=== PATIENT | female | born 1985 | race Caucasian/White ===

== ENCOUNTER 2019-07-29 04:30 | Inpatient (IN) ==
[2019-07-29] MEDS ORDERED: OXYTOCIN 30 UNITS/500 ML BAG IV PRN ×2 (07:04→16:51)
[2019-07-29 07:29] LABS: Hematocrit (blood only) 35.9 % (37-47); Hemoglobin 12.3 g/dL (12.0-16.0); Mean Corpuscular Hemoglobin 30.1 pg (25-34); Mean Platelet Volume 11.3 fL (7.4-10.4); Platelet Count 185 K/uL (130-400); RDW Coefficient of Variation 13.4 % (11.5-14.5); RDW Standard Deviation 43.1 fL (36.4-46.3); Red Blood Count 4.08 M/uL (4.2-5.4)
[2019-07-29] MEDS ORDERED: PENICILLIN G POTASSIUM 6 MU in DEXTROSE 5% 250 ML IV STA (07:31)
[2019-07-29 07:32] LABS: Mean Corpuscular Hgb Conc 34.3 g/dL (32-36)
[2019-07-29] MEDS: LACTATED RINGER'S 1,000 ML IV PRN ×3 (08:02→16:18)
--- NOTE | 2019-07-29 08:45 | Obstetrical Progress Note ---
Date of Service July 29, 2019 Subjective Admit Note Physical Exam Physical Exam: 34 F P0000 at 40.4 weeks seen in LR&D in early labor. GBS is positive. FHT Cat 1. Cervix 4-5/90/-2/vertex by RN. Will admit and start antibiotics. Anticipate normal delivery. Results & Data Vital Signs (Past 12 Hours) Vital Signs Temp Pulse Resp BP 07/29/19 07:26 76 130/74 07/29/19 06:58 37.0 C 72 18 154/84 H 07/29/19 04:55 37.1 C 82 18 142/87 H 07/29/19 04:42 37.1 C 82 18 142/87 H
--- NOTE | 2019-07-29 11:30 | Obstetrical Progress Note ---
Date of Service July 29, 2019 Physical Exam Genitourinary: OB Exam Abdomen: + regular contractions Manual OB Exam: + cervical dilation 7 cm and 8 cm, + cervical effacement 100%, + station -1 and + amniotic fluid meconium OB Exam Monitor Tracing: + category I SROM with meconium stained fluid Results & Data Vital Signs (Past 12 Hours) Vital Signs Temp Pulse Resp BP 07/29/19 10:44 36.6 C 72 20 143/72 H 07/29/19 07:26 76 130/74 07/29/19 06:58 37.0 C 72 18 154/84 H 07/29/19 04:55 37.1 C 82 18 142/87 H 07/29/19 04:42 37.1 C 82 18 142/87 H
[2019-07-29] MEDS: PENICILLIN G POTASSIUM 3 MU in DEXTROSE 5% 100 ML IV PRN ×3 (11:42→19:40)
[2019-07-29] MEDS ORDERED: BUPIVACAINE 0.25% 30 ML VIAL ONE (14:09)
[2019-07-29] MEDS ORDERED: ePHEDrine sulfate 50 MG/ML AMP ONE (14:09)
[2019-07-29] MEDS ORDERED: fentaNYL 2MCG/ML ROPIV 1.25MG/ML 100 ML BAG EPI ONE (14:10)
[2019-07-29] MEDS ORDERED: fentaNYL citrate 100 MCG/2 ML VIAL ONE (14:10)
--- NOTE | 2019-07-29 14:41 | Anesthesiology Consultation ---
Date of Service July 29, 2019 Assessment & Plan Chart Review Chart Review: Acceptable Risk for Surgery, Patient NOT seen in Pre Admission Testing and Acceptable Risk for Labor Epidural Consults Requested none ASA ASA2 Proposed Anesthesia Anesthesia Type: General and Labor Epidural Risk / Benefits Reviewed With: PT / POA / Parent / Guardian, Accepts Plan and Informed Consent Obtained History Height/Weight Height: 5 ft 5 in Weight: 91.172 kg Allergies Allergy/AdvReac Type Severity Reaction Status Date / Time No Known Allergies Allergy Verified 07/29/19 04:52 Medications Home Medications Medication Instructions Recorded Confirmed Last Taken PNV cmb#95-ferrous fumarate-FA 1 tab PO DAILY 07/29/19 07/29/19 07/28/19 08:00 [] aspirin [Aspir-81] 81 mg PO DAILY 07/29/19 07/29/19 07/27/19 Active Medications Generic Name Dose Route Start Last Admin Trade Name Freq PRN Reason Stop Dose Admin Lactated Ringer's 1,000 mls @ 125 mls/hr 07/29/19 07:04 07/29/19 14:15 Lr IV 07/31/19 07:03 999 mls/hr .Q8H PRN Infusion L&D Protocol Protocol Penicillin G Potassium 3 mu/ 106 mls @ 100 mls/hr 07/29/19 07:04 07/29/19 12:46 Dextrose IV 08/08/19 07:03 Infused Q4H PRN Infusion Give until delivery NPO Date Last Intake of Fluids: 07/29/19 Time Last Intake of Fluids: 08:00 Date Last Intake of Solids: 07/28/19 Time Last Intake of Solids: 20:00 Past Medical History Medical History Anemia GERD (gastroesophageal reflux disease) Obese Jadwin teeth extracted 2002 Exercise / Class Metabolic Activity II 4-5 Yardwork/Stairs/Walk up hill Past Family History Family History Grandmother (Paternal) Cancer Grandmother (Maternal) Cancer Grandfather (Maternal) Heart disease Past Surgical History Surgical History H/O LEEP 2010 Past Anesthesia History No Hx of Anesthesia Complications and No Family Hx of Anesthesia Complications History of PONV No Hx of PONV and No Hx of Motion Sickness Social History Smoking Status: Former smoker Hx Alcohol Use: No Hx Substance Use: No Physical Exam Vital Signs Last Vital Signs Temp 36.8 C 07/29/19 13:03 Pulse 60 07/29/19 14:38 Resp 20 07/29/19 13:03 BP 144/77 H 07/29/19 14:37 Pulse Ox 99 07/29/19 14:38 Constitutional + obese ENMT Mouth: no dentition abnormality Thyromental Distance: > or= 3.5 Finger Breadths Mallampati Class: II Neck normal visual inspection and trachea midline; neck extension not limited Respiratory normal respiratory effort Auscultation: lungs clear to auscultation bilaterally Cardiovascular Rate/Rhythm: regular rate and regular rhythm Heart Sounds: no murmur Musculoskeletal Spine: lumbar spine normal to inspection; normal cervical ROM Neurologic moves all extremities Motor/Sensory: no sensory deficit Psychiatric Orientation: alert and oriented x 3 Testing Laboratory Results 07/29/19 07:19
[2019-07-29] MEDS ORDERED: DiphenhydrAMINE HCL 50 MG/ML VIAL IV PRN (15:07)
[2019-07-29] MEDS ORDERED: NALOXONE HCL 0.4 MG/1 ML VIAL/CARP IV PRN (15:07)
[2019-07-29] MEDS ORDERED: NALBUPHINE HCL INJ 10 MG/ML AMP IV PRN (15:07)
[2019-07-29] MEDS ORDERED: ONDANSETRON INJ 2 MG/ML 2 ML VIAL IV PRN (15:07)
[2019-07-29] MEDS ORDERED: NALOXONE HCL 1 MG in SODIUM CHLORIDE 0.9% 1000ML 1,000 ML IV PRN (15:07)
[2019-07-29] MEDS ORDERED: fentaNYL 2MCG/ML ROPIV 1.25MG/ML 100 ML BAG EPI PRN (15:07)
[2019-07-29] MEDS ORDERED: ePHEDrine sulfate 50 MG/ML AMP IV PRN (15:07)
[2019-07-29] MEDS ORDERED: PROMETHAZINE HCL 25 MG in SODIUM CHLORIDE 0.9% 50 ML IV PRN (15:07)
--- NOTE | 2019-07-29 16:54 | Obstetrical Progress Note ---
Date of Service July 29, 2019 Physical Exam Constitutional: WD/WN, vitals as above Genitourinary: Manual OB Exam: + cervical dilation 8 cm, + cervical effacement, + station 0 and + amniotic fluid clear OB Exam Monitor Tracing: + external FHT monitor used, + external uterine monitor used, + category I and + normal FHT variability Exam by nurse and no cervical change will start oxytocin to augment contractions Results & Data Vital Signs (Past 12 Hours) Vital Signs Temp Pulse Resp BP Pulse Ox 07/29/19 16:48 74 134/80 98 07/29/19 16:43 74 99 07/29/19 16:38 61 98 07/29/19 16:35 82 113/70 07/29/19 16:33 75 98 07/29/19 16:28 92 H 98 07/29/19 16:23 60 98 07/29/19 16:20 61 129/72 07/29/19 16:18 70 99 07/29/19 16:13 71 98 07/29/19 16:08 72 99 07/29/19 16:03 85 115/74 98 07/29/19 15:58 85 98 07/29/19 15:53 89 99 07/29/19 15:48 84 18 116/67 97 07/29/19 15:43 76 98 07/29/19 15:40 111/61 07/29/19 15:38 68 116/63 98 07/29/19 15:36 55 L 113/62 07/29/19 15:34 61 122/64 07/29/19 15:33 77 99 07/29/19 15:32 49 L 18 109/64 07/29/19 15:30 65 118/64 07/29/19 15:28 64 118/60 98 07/29/19 15:26 67 18 115/55 L 07/29/19 15:24 65 118/61 07/29/19 15:23 68 99 07/29/19 15:22 71 124/65 07/29/19 15:20 77 130/69 07/29/19 15:18 73 118/64 98 07/29/19 15:16 68 18 116/58 L 07/29/19 15:14 68 18 123/56 L 07/29/19 15:13 75 98 07/29/19 15:12 96 H 18 119/56 L 07/29/19 15:10 69 18 119/65 07/29/19 15:08 71 18 117/64 99 07/29/19 15:06 72 18 113/57 L 07/29/19 15:04 18 122/56 L 07/29/19 15:03 63 98 07/29/19 15:02 37.0 C 56 L 18 111/57 L 07/29/19 15:00 60 18 138/65 07/29/19 14:58 81 18 114/69 97 07/29/19 14:56 63 142/75 H 07/29/19 14:53 72 98 07/29/19 14:48 72 98 07/29/19 14:43 76 97 07/29/19 14:38 60 99 07/29/19 14:37 63 16 144/77 H 07/29/19 14:33 68 98 07/29/19 14:28 73 97 07/29/19 14:25 80 91 07/29/19 14:23 75 99 07/29/19 14:18 62 98 07/29/19 13:03 36.8 C 57 L 20 131/74 07/29/19 10:44 36.6 C 72 20 143/72 H 07/29/19 07:26 76 130/74 07/29/19 06:58 37.0 C 72 18 154/84 H 07/29/19 04:55 37.1 C 82 18 142/87 H
[2019-07-29] MEDS ORDERED: Nursing to Pharmacy Communication ONE (20:07)
--- NOTE | 2019-07-29 20:33 | Obstetrical Progress Note ---
Date of Service July 29, 2019 Physical Exam Genitourinary: Manual OB Exam: + cervical dilation 10 cm, + cervical effacement 100% and + station + 1 OB Exam Monitor Tracing: + external FHT monitor used, + external uterine monitor used and + category I patient will start to push Results & Data Vital Signs (Past 12 Hours) Vital Signs Temp Pulse Resp BP Pulse Ox 07/29/19 20:28 71 96 07/29/19 20:23 73 98 07/29/19 20:19 68 143/64 H 07/29/19 20:18 70 97 07/29/19 20:13 70 97 07/29/19 20:08 70 96 07/29/19 20:03 74 114/56 L 97 07/29/19 19:58 71 96 07/29/19 19:53 69 96 07/29/19 19:48 102 H 97 07/29/19 19:43 89 98 07/29/19 19:38 67 97 07/29/19 19:34 68 144/72 H 07/29/19 19:33 74 99 07/29/19 19:28 70 96 07/29/19 19:23 70 97 07/29/19 19:19 67 134/73 07/29/19 19:18 71 99 07/29/19 19:13 75 98 07/29/19 19:08 70 98 07/29/19 19:03 37.2 C 80 18 130/67 98 07/29/19 18:58 71 98 07/29/19 18:53 70 97 07/29/19 18:48 69 122/64 97 07/29/19 18:43 68 98 07/29/19 18:38 67 98 07/29/19 18:34 67 122/61 07/29/19 18:33 67 98 07/29/19 18:28 72 97 07/29/19 18:23 68 98 07/29/19 18:18 73 136/60 98 07/29/19 18:13 84 97 07/29/19 18:08 65 98 07/29/19 18:03 86 127/75 98 07/29/19 17:58 63 97 07/29/19 17:53 83 97 07/29/19 17:50 76 20 126/67 07/29/19 17:48 83 98 09/15/19 17:43 65 96 07/29/19 17:38 62 97 07/29/19 17:34 65 20 136/75 07/29/19 17:33 62 98 07/29/19 17:28 68 98 07/29/19 17:23 64 98 07/29/19 17:20 63 150/78 H 07/29/19 17:18 96 H 98 07/29/19 17:13 65 97 07/29/19 17:08 86 98 07/29/19 17:05 37.2 C 18 07/29/19 17:03 84 20 133/73 98 07/29/19 16:58 76 98 07/29/19 16:53 64 98 07/29/19 16:48 74 134/80 98 07/29/19 16:43 74 99 07/29/19 16:38 61 98 07/29/19 16:35 82 18 113/70 07/29/19 16:33 75 98 07/29/19 16:28 92 H 98 07/29/19 16:23 60 98 07/29/19 16:20 61 129/72 07/29/19 16:18 70 99 07/29/19 16:13 71 98 07/29/19 16:08 72 99 07/29/19 16:03 85 115/74 98 07/29/19 15:58 85 98 07/29/19 15:53 89 99 07/29/19 15:48 84 18 116/67 97 07/29/19 15:43 76 98 07/29/19 15:40 111/61 07/29/19 15:38 68 116/63 98 07/29/19 15:36 55 L 113/62 07/29/19 15:34 61 122/64 07/29/19 15:33 77 99 07/29/19 15:32 49 L 18 109/64 07/29/19 15:30 65 118/64 07/29/19 15:28 64 118/60 98 07/29/19 15:26 67 18 115/55 L 07/29/19 15:24 65 118/61 07/29/19 15:23 68 99 07/29/19 15:22 71 124/65 07/29/19 15:20 77 130/69 07/29/19 15:18 73 118/64 98 07/29/19 15:16 68 18 116/58 L 07/29/19 15:14 68 18 123/56 L 07/29/19 15:13 75 98 07/29/19 15:12 96 H 18 119/56 L 07/29/19 15:10 69 18 119/65 07/29/19 15:08 71 18 117/64 99 07/29/19 15:06 72 18 113/57 L 07/29/19 15:04 18 122/56 L 07/29/19 15:03 63 98 07/29/19 15:02 37.0 C 56 L 18 111/57 L 07/29/19 15:00 60 18 138/65 07/29/19 14:58 81 18 114/69 97 07/29/19 14:56 63 142/75 H 07/29/19 14:53 72 98 07/29/19 14:48 72 98 07/29/19 14:43 76 97 07/29/19 14:38 60 99 07/29/19 14:37 63 16 144/77 H 07/29/19 14:33 68 98 07/29/19 14:28 73 97 07/29/19 14:25 80 91 07/29/19 14:23 75 99 07/29/19 14:18 62 98 07/29/19 13:03 36.8 C 57 L 20 131/74 07/29/19 10:44 36.6 C 72 20 143/72 H
[2019-07-29] MEDS ORDERED: IBUPROFEN 600 MG TAB PO ONE (22:46)
--- NOTE | 2019-07-29 22:51 | Delivery Summary ---
Vaginal Delivery Summary Date of Service July 29, 2019 Vaginal Delivery Summary Delivery Note live male over intact perineum ELISE with delayed cord clamping. Apgars 8/9 weight pending. Cord blood obtained followed by spontaneous delivery of intact placenta. Small first degree vaginal tear repaired with one 3/0 Vicryl stitch. EBL 250 ml. Final sponge needle and instrument count are correct. Mom and baby stable.
[2019-07-30] MEDS ORDERED: SUPERCREAM 0.870% 15 GM JAR EXT PRN (00:22)
[2019-07-30] MEDS ORDERED: DIPHTHERIA/TETANUS/PERTUSSIS 0.5 ML SYR/VIAL IM ONE (00:22)
[2019-07-30] MEDS ORDERED: BISACODYL 10 MG SUPP PR PRN (00:22)
[2019-07-30] MEDS ORDERED: BENZOCAINE 20% AER SPR 82.5 GM CAN EXT PRN (00:22)
[2019-07-30] MEDS ORDERED: OXYTOCIN 30 UNITS/500 ML BAG IV PRN (00:22)
[2019-07-30] MEDS ORDERED: HYDROCORTISONE ACETATE 25 MG SUPP PR PRN (00:22)
[2019-07-30] MEDS: ACETAMINOPHEN 325 MG TAB PO PRN ×4 (01:41→21:11)
[2019-07-30] MEDS: IBUPROFEN 600 MG TAB PO PRN ×4 (05:17→23:32)
[2019-07-30 07:00] LABS: Hematocrit (blood only) 33.7 % (37-47); Hemoglobin 11.3 g/dL (12.0-16.0); Mean Corpuscular Hemoglobin 30.1 pg (25-34); Mean Corpuscular Hgb Conc 33.5 g/dL (32-36); Mean Corpuscular Volume 89.9 fL (80-100); Mean Platelet Volume 11.5 fL (7.4-10.4); Platelet Count 186 K/uL (130-400); RDW Coefficient of Variation 13.8 % (11.5-14.5); RDW Standard Deviation 45.4 fL (36.4-46.3); Red Blood Count 3.75 M/uL (4.2-5.4)
[2019-07-30 07:03] LABS: White Blood Count 30.69 K/uL (4.8-10.8)
[2019-07-30] MEDS: PRENATAL VITAMIN 1 TAB PO SCH (07:41)
[2019-07-30] MEDS: DOCUSATE SODIUM 100 MG CAP PO SCH ×2 (07:42→21:05)
--- NOTE | 2019-07-30 08:40 | Obstetrical Progress Note ---
Date of Service July 30, 2019 Subjective Patient is seen and examined. She feels well, no complaints. Ambulating without dizziness Voiding without difficulty Tolerating regular diet with out N&V Bleeding is minimal No fever/ chills/ CP/ SOB/ N&V/ Leg pain Breast feeding without problems Vital Signs Temp Pulse Pulse Resp BP BP Pulse Ox 07/30/19 07:19 36.4 C L 85 17 127/78 85 L 07/30/19 04:20 36.9 C 18 135/70 07/30/19 01:32 37.2 C 20 134/76 07/30/19 00:35 18 07/30/19 00:33 82 121/65 07/30/19 00:18 78 140/58 L 07/30/19 00:05 18 07/30/19 00:03 83 124/61 07/29/19 23:48 85 123/65 07/29/19 23:35 18 07/29/19 23:33 89 126/65 07/29/19 23:20 18 07/29/19 23:18 94 H 125/65 07/29/19 23:14 93 H 94 07/29/19 23:13 99 H 94 07/29/19 23:09 89 96 07/29/19 23:05 18 07/29/19 23:04 93 H 95 07/29/19 23:03 90 119/60 07/29/19 22:59 92 H 96 07/29/19 22:54 92 H 96 07/29/19 22:50 37.2 C 18 07/29/19 22:49 91 H 97 07/29/19 22:48 97 H 128/68 07/29/19 22:44 103 H 95 07/29/19 22:39 105 H 96 07/29/19 22:38 101 H 129/69 07/29/19 22:35 18 07/29/19 22:34 101 H 94 07/29/19 22:33 102 H 18 124/64 07/29/19 22:29 109 H 95 07/29/19 22:28 109 H 93 07/29/19 22:24 126 H 95 07/29/19 22:21 121 H 114/66 07/29/19 22:19 121 H 95 07/29/19 22:17 154 H 93 07/29/19 22:14 144 H 95 07/29/19 22:11 145 H 94 07/29/19 22:09 122 H 95 07/29/19 22:04 120 H 97 07/29/19 22:00 114 H 18 94 07/29/19 21:59 112 H 95 07/29/19 21:55 124 H 92 07/29/19 21:54 122 H 96 07/29/19 21:49 146 H 96 07/29/19 21:48 126 H 112/66 07/29/19 21:44 117 H 95 07/29/19 21:43 112 H 82 L 07/29/19 21:39 135 H 95 07/29/19 21:34 119 H 96 07/29/19 21:33 117 H 136/69 07/29/19 21:31 126 H 18 93 07/29/19 21:29 124 H 96 07/29/19 21:24 139 H 95 07/29/19 21:19 143 H 96 07/29/19 21:18 136 H 120/57 L 07/29/19 21:14 150 H 96 07/29/19 21:13 126 H 94 07/29/19 21:09 150 H 97 07/29/19 21:08 149 H 93 07/29/19 21:04 139 H 97 07/29/19 21:03 117 H 18 127/57 L 07/29/19 20:59 120 H 97 07/29/19 20:54 149 H 99 07/29/19 20:50 37.1 C 07/29/19 20:49 111 H 136/65 99 07/29/19 20:44 112 H 94 07/29/19 20:40 97 H 89 L 07/29/19 20:39 110 H 98 07/29/19 20:33 120 H 18 97 07/29/19 20:28 71 96 07/29/19 20:23 73 98 07/29/19 20:19 68 143/64 H 07/29/19 20:18 70 97 07/29/19 20:13 70 97 07/29/19 20:08 70 96 07/29/19 20:03 74 18 114/56 L 97 07/29/19 19:58 71 96 07/29/19 19:53 69 96 07/29/19 19:48 102 H 97 07/29/19 19:43 89 98 07/29/19 19:38 67 97 15 19:34 68 18 144/72 H 07/29/19 19:33 74 99 15 19:28 70 96 15 19:23 70 97 15/ 19:19 67 134/73 07/29/19 19:18 71 99 07/29/19 19:13 75 98 07/29/19 19:08 70 98 07/29/19 19:03 37.2 C 80 18 130/67 98 07/29/19 18:58 71 98 07/29/19 18:53 70 97 07/29/19 18:48 69 122/64 97 07/29/19 18:43 68 98 07/29/19 18:38 67 98 07/29/19 18:34 67 122/61 07/29/19 18:33 67 98 07/29/19 18:28 72 97 07/29/19 18:23 68 98 07/29/19 18:18 73 136/60 98 07/29/19 18:13 84 97 07/29/19 18:08 65 98 07/29/19 18:03 86 127/75 98 15 17:58 63 97 07/29/19 17:53 83 97 07/29/19 17:50 76 20 126/67 07/29/19 17:48 83 98 07/29/19 17:43 65 96 07/29/19 17:38 62 97 07/29/19 17:34 65 20 136/75 07/29/19 17:33 62 98 07/29/19 17:28 68 98 07/29/19 17:23 64 98 1519 17:20 63 150/78 H 07/29/19 17:18 96 H 98 07/29/19 17:13 65 97 07/29/19 17:08 86 98 07/29/19 17:05 37.2 C 18 07/29/19 17:03 84 20 133/73 98 15/19 16:58 76 98 15 16:53 64 98 15/19 16:48 74 134/80 98 1519 16:43 74 99 19 16:38 61 98 1519 16:35 82 18 113/70 07/29/19 16:33 75 98 07/29/19 16:28 92 H 98 07/29/19 16:23 60 98 07/29/19 16:20 61 129/72 07/29/19 16:18 70 99 07/29/19 16:13 71 98 07/29/19 16:08 72 99 07/29/19 16:03 85 115/74 98 07/29/19 15:58 85 98 07/29/19 15:53 89 99 07/29/19 15:48 84 18 116/67 97 07/29/19 15:43 76 98 07/29/19 15:40 111/61 07/29/19 15:38 68 116/63 98 07/29/19 15:36 55 L 113/62 07/29/19 15:34 61 122/64 07/29/19 15:33 77 99 07/29/19 15:32 49 L 18 109/64 07/29/19 15:30 65 118/64 07/29/19 15:28 64 118/60 98 07/29/19 15:26 67 18 115/55 L 07/29/19 15:24 65 118/61 07/29/19 15:23 68 99 07/29/19 15:22 71 124/65 07/29/19 15:20 77 130/69 07/29/19 15:18 73 118/64 98 07/29/19 15:16 68 18 116/58 L 07/29/19 15:14 68 18 123/56 L 07/29/19 15:13 75 98 07/29/19 15:12 96 H 18 119/56 L 07/29/19 15:10 69 18 119/65 07/29/19 15:08 71 18 117/64 99 07/29/19 15:06 72 18 113/57 L 07/29/19 15:04 18 122/56 L 07/29/19 15:03 63 98 07/29/19 15:02 37.0 C 56 L 18 111/57 L 07/29/19 15:00 60 18 138/65 07/29/19 14:58 81 18 114/69 97 07/29/19 14:56 63 142/75 H 07/29/19 14:53 72 98 07/29/19 14:48 72 98 07/29/19 14:43 76 97 07/29/19 14:38 60 99 07/29/19 14:37 63 16 144/77 H 07/29/19 14:33 68 98 07/29/19 14:28 73 97 07/29/19 14:25 80 91 07/29/19 14:23 75 99 07/29/19 14:18 62 98 07/29/19 13:03 36.8 C 57 L 20 131/74 07/29/19 10:44 36.6 C 72 20 143/72 H Intake and Output 07/29/19 07/30/19 07/30/19 22:59 06:59 14:59 Intake Total 2039.817 / 4386.250 978.433 / 4386.250 Output Total 450 / 1000 400 / 1000 Balance 1589.817 / 3386.250 578.433 / 3386.250 Intake: IV 2039.817 / 4386.250 978.433 / 4386.250 Lr 1,000 ml @ 125 mls/hr IV . 1806.25 / 2806.250 Q8H PRN Rx#:[id number] PITOCIN 30 units In 500 ml @ 20 21.567 / 1000.000 978.433 / 1000.000 UNITS/HR 333.333 mls/hr IV . Q1H30M PRN Rx#:[id number] Pfizerpen 3 Mu In D5 100 ml @ 212 / 318 100 mls/hr IV Q4H PRN Rx#: [id number] Output: Urine 400 / 550 Urine Amount (Catheter) 450 / 450 Straight 450 / 450 Lab Results 07/29/19 07/30/19 Range/Units 07:19 06:28 WBC 16.10 H 30.69 H* D (4.8-10.8) K/uL RBC 4.08 L 3.75 L (4.2-5.4) M/uL Hgb 12.3 11.3 L (12.0-16.0) g/dL Hct 35.9 L 33.7 L (37-47) % MCV 88.0 89.9 (80-100) fL MCH 30.1 30.1 (25-34) pg MCHC 34.3 33.5 (32-36) g/dL RDW Std Deviation 43.1 45.4 (36.4-46.3) fL RDW Coeff of Samantha 13.4 13.8 (11.5-14.5) % Plt Count 185 186 (130-400) K/uL MPV 11.3 H 11.5 H (7.4-10.4) fL PE: General: Alert, orientedx3, NAD CVS S1S2 RRR Lungs: CTAB Abd: soft, NT, fundus firm, below Umbilicus Perineum intact, Lochia rubra minimal Ext; NT, no edema, Homans neg/ neg AP: 34 yo s/p , ppd# 1 VSS Afebrile doing well Elevated WBCC: 16 K on admission, 14K during Asymptomatic Had been afebrile during labor, no h/o prolonged ROM GBS + Plan to repeat labs Continue to monitor closely All questions were answered Results & Data Vital Signs (Past 12 Hours) Vital Signs Temp Pulse Pulse Resp BP BP Pulse Ox 07/30/19 07:19 36.4 C L 85 17 127/78 85 L 07/30/19 04:20 36.9 C 18 135/70 07/30/19 01:32 37.2 C 20 134/76 07/30/19 00:35 18 07/30/19 00:33 82 121/65 07/30/19 00:18 78 140/58 L 07/30/19 00:05 18 07/30/19 00:03 83 124/61 07/29/19 23:48 85 123/65 07/29/19 23:35 18 07/29/19 23:33 89 126/65 07/29/19 23:20 18 07/29/19 23:18 94 H 125/65 07/29/19 23:14 93 H 94 07/29/19 23:13 99 H 94 07/29/19 23:09 89 96 07/29/19 23:05 18 07/29/19 23:04 93 H 95 07/29/19 23:03 90 119/60 07/29/19 22:59 92 H 96 07/29/19 22:54 92 H 96 07/29/19 22:50 37.2 C 18 07/29/19 22:49 91 H 97 07/29/19 22:48 97 H 128/68 07/29/19 22:44 103 H 95 07/29/19 22:39 105 H 96 07/29/19 22:38 101 H 129/69 07/29/19 22:35 18 07/29/19 22:34 101 H 94 07/29/19 22:33 102 H 18 124/64 07/29/19 22:29 109 H 95 07/29/19 22:28 109 H 93 07/29/19 22:24 126 H 95 07/29/19 22:21 121 H 114/66 07/29/19 22:19 121 H 95 07/29/19 22:17 154 H 93 07/29/19 22:14 144 H 95 07/29/19 22:11 145 H 94 07/29/19 22:09 122 H 95 07/29/19 22:04 120 H 97 07/29/19 22:00 114 H 18 94 07/29/19 21:59 112 H 95 07/29/19 21:55 124 H 92 07/29/19 21:54 122 H 96 07/29/19 21:49 146 H 96 07/29/19 21:48 126 H 112/66 07/29/19 21:44 117 H 95 07/29/19 21:43 112 H 82 L 07/29/19 21:39 135 H 95 07/29/19 21:34 119 H 96 07/29/19 21:33 117 H 136/69 07/29/19 21:31 126 H 18 93 07/29/19 21:29 124 H 96 07/29/19 21:24 139 H 95 07/29/19 21:19 143 H 96 07/29/19 21:18 136 H 120/57 L 07/29/19 21:14 150 H 96 07/29/19 21:13 126 H 94 07/29/19 21:09 150 H 97 07/29/19 21:08 149 H 93 07/29/19 21:04 139 H 97 07/29/19 21:03 117 H 18 127/57 L 07/29/19 20:59 120 H 97 07/29/19 20:54 149 H 99 07/29/19 20:50 37.1 C 07/29/19 20:49 111 H 136/65 99 07/29/19 20:44 112 H 94 07/29/19 20:40 97 H 89 L 07/29/19 20:39 110 H 98
[2019-07-30] MEDS ORDERED: NON-FORMULARY MEDICATION (Pnv Cmb#95-Ferrous Fumarate-Fa [Prenatal] 1 TAB) PO SCH (09:00)
[2019-07-30 09:47] LABS: Hematocrit (blood only) 32.5 % (37-47); Hemoglobin 11.1 g/dL (12.0-16.0); Mean Corpuscular Hemoglobin 30.7 pg (25-34); Mean Corpuscular Volume 89.8 fL (80-100); Mean Platelet Volume 11.2 fL (7.4-10.4); Platelet Count 169 K/uL (130-400); RDW Coefficient of Variation 13.7 % (11.5-14.5); RDW Standard Deviation 44.8 fL (36.4-46.3); Red Blood Count 3.62 M/uL (4.2-5.4); White Blood Count 27.33 K/uL (4.8-10.8)
[2019-07-30 10:11] LABS: Mean Corpuscular Hgb Conc 34.2 g/dL (32-36)
[2019-07-30 10:28] LABS: Basophils # (auto) 0.02 K/uL (0-0.2); Basophils % (auto) 0.1 %; Immature Granulocytes # (auto) 0.13 K/uL (0.00-0.02); Immature Granulocytes % (auto) 0.5 %; Lymphocytes # (auto) 2.13 K/uL (1.2-3.4); Lymphocytes % (auto) 7.8 %; Monocytes # (auto) 1.89 K/uL (0.11-0.59); Monocytes % (auto) 6.9 %; Neutrophils # (auto) 23.16 K/uL (1.4-6.5); Neutrophils % (auto) 84.7 %
[2019-07-30] MEDS: CEFAZOLIN 2000MG 2,000 MG/15 ML SYR IV SCH ×2 (10:47→18:30)
[2019-07-30] MEDS: ASPIRIN 81 MG ECTAB PO SCH (10:52)
--- NOTE | 2019-07-30 17:54 | Obstetrical Progress Note ---
Date of Service July 30, 2019 Subjective Patient is seen She feels likes saw her earlier to pubic bone pain and difficulty with walking We discussed about pubic symphysis separation and management No abdominal pain No uterine tenderness Her baby is being transferred to [facility] N[facility] She likes to be discharged Given her WBCC elevated and started on IV Cefazolin I recommended her to stay overnight for at least 24 hour IV AB and repeat CBC/ WBCC in am She likes to think about it and decide Results & Data Vital Signs (Past 12 Hours) Vital Signs Temp Pulse Resp BP Pulse Ox 07/30/19 11:44 36.6 C 78 16 129/85 98 07/30/19 07:20 36.5 C 99 07/30/19 07:19 36.4 C L 85 17 127/78 98
[2019-07-30] MEDS ORDERED: BISACODYL 5 MG TABEC PO SCH (20:00)
[2019-07-31] MEDS: CEFAZOLIN 2000MG 2,000 MG/15 ML SYR IV SCH ×2 (02:02→12:10)
[2019-07-31 07:16] LABS: Basophils # (auto) 0.02 K/uL (0-0.2); Basophils % (auto) 0.1 %; Eosinophils % (auto) 0.6 %; Hematocrit (blood only) 31.5 % (37-47); Hemoglobin 10.5 g/dL (12.0-16.0); Immature Granulocytes # (auto) 0.12 K/uL (0.00-0.02); Immature Granulocytes % (auto) 0.7 %; Lymphocytes # (auto) 2.91 K/uL (1.2-3.4); Lymphocytes % (auto) 17.8 %; Mean Corpuscular Hemoglobin 30.2 pg (25-34); Mean Corpuscular Hgb Conc 33.3 g/dL (32-36); Mean Corpuscular Volume 90.5 fL (80-100); Mean Platelet Volume 11.3 fL (7.4-10.4); Monocytes # (auto) 1.13 K/uL (0.11-0.59); Monocytes % (auto) 6.9 %; Neutrophils # (auto) 12.07 K/uL (1.4-6.5); Neutrophils % (auto) 73.9 %; Platelet Count 168 K/uL (130-400); RDW Coefficient of Variation 13.9 % (11.5-14.5); RDW Standard Deviation 45.4 fL (36.4-46.3); Red Blood Count 3.48 M/uL (4.2-5.4); White Blood Count 16.35 K/uL (4.8-10.8)
[2019-07-31] MEDS: PRENATAL VITAMIN 1 TAB PO SCH (08:23)
[2019-07-31] MEDS: DOCUSATE SODIUM 100 MG CAP PO SCH (08:23)
[2019-07-31] MEDS: IBUPROFEN 600 MG TAB PO PRN ×2 (08:23→12:28)
[2019-07-31] MEDS: ASPIRIN 81 MG ECTAB PO SCH (08:24)
--- NOTE | 2019-07-31 08:53 | Obstetrical Progress Note ---
Date of Service July 31, 2019 Subjective doing fine planning for discharge Physical Exam Constitutional: WD/WN, vitals as above comfortable abdomen soft and non- tender fundus firm no edema neg Aba's for d/c Results & Data Vital Signs (Past 12 Hours) Vital Signs Temp Pulse Pulse Resp BP Pulse Ox 07/31/19 07:45 36.8 C 70 18 134/85 98 07/30/19 23:30 36.4 C L 82 18 130/66 Laboratory Results Laboratory Results - last 72 hr 07/29/19 07/30/19 07/30/19 07:19 06:28 09:33 WBC 16.10 H 30.69 H* D 27.33 H RBC 4.08 L 3.75 L 3.62 L Hgb 12.3 11.3 L 11.1 L Hct 35.9 L 33.7 L 32.5 L MCV 88.0 89.9 89.8 MCH 30.1 30.1 30.7 MCHC 34.3 33.5 34.2 RDW Std Deviation 43.1 45.4 44.8 RDW Coeff of Samantha 13.4 13.8 13.7 Plt Count 185 186 169 MPV 11.3 H 11.5 H 11.2 H Immature Gran % (Auto) 0.5 Neut % (Auto) 84.7 Lymph % (Auto) 7.8 [place] % (Auto) 6.9 Eos % (Auto) 0.0 Baso % (Auto) 0.1 Immature Gran # (Auto) 0.13 H Neut # (Auto) 23.16 H Lymph # (Auto) 2.13 [place] # (Auto) 1.89 H Eos # (Auto) 0.00 Baso # (Auto) 0.02 07/31/19 06:08 WBC 16.35 H D RBC 3.48 L Hgb 10.5 L Hct 31.5 L MCV 90.5 MCH 30.2 MCHC 33.3 RDW Std Deviation 45.4 RDW Coeff of Samantha 13.9 Plt Count 168 MPV 11.3 H Immature Gran % (Auto) 0.7 Neut % (Auto) 73.9 Lymph % (Auto) 17.8 [place] % (Auto) 6.9 Eos % (Auto) 0.6 Baso % (Auto) 0.1 Immature Gran # (Auto) 0.12 H Neut # (Auto) 12.07 H Lymph # (Auto) 2.91 [place] # (Auto) 1.13 H Eos # (Auto) 0.10 Baso # (Auto) 0.02
== END 2019-07-31 12:55 | disposition home or self-care (01) | DRG 807 ==
LOC: OPB 04:30 → 4S1 04:33 → 4S2 07-30 01:00

== ENCOUNTER 2024-05-21 05:41 | Inpatient (IN) ==
--- OUTSIDE RECORDS SUMMARY | 2024-05-21 05:53 | External Medical Summary | Summary of Care ---
Author Name Unknown Organization [facility] Address [address] [facility] [place] [address] Phone [phone] Care Team Providers Care Jogger Operator Name Role Phone Stevan Freedman DO, Kenneth Primary Care Provider [phone] Reason for Visit * Reason Comments Return Visit 38w6d Encounter Details Date Type Department Care Team (Late st Contact Info) Description 05/14/2024 11:45 AM EDT Office Visit Gynecology/Obstetric [place] [address] [facility] [place] [address] Juany Meyer PA-C [address] [facility] [place] [phone] 38 weeks gestation of *; Rh negative, antepartum; Hypothyroidism (acquired); Multigravida of advanced maternal age in second trimester; Other dietary vitamin B12 deficiency anemia; Antepartum anemia complicating ; Abnormal glucose tolerance in mother complicating ; Positive GBS test Allergies No known active allergiesdocumented as of this encounter (statuses as of 05/14/2024) Medications Medication Sig Dispensed Refills Start Date End Date Status MV-Min-Fe Fum-FA-DHA ( 1) 30-0.975-200 MG Capsule Take 1 Cap by mouth daily. Active Selenium 100 MCG Oral Tablet daily. 06/14/2023 Active Aspirin 81 MG Oral Tablet Delayed Release 1 Tablet. 10/04/2022 Active Levothyroxine Sodium 100 MCG Oral Tablet (Synthroid) Take 1 Tablet by mouth daily first thing in the morning. Per pt, taking 100mcg Tuesday through Tuesday, Tuesday and Tuesday she is taking 200mcg 09/18/2023 Active Iron-Vitamin C 65-125 MG Oral Tablet (Vitron C)Indications:Antepar ananth anemia complicating Take 1 Tablet by mouth in the morning and 1 Tablet before bedtime. 180 Tablet 1 02/29/2024 Active Docusate Sodium 100 MG Oral Capsule (Colace)Indications:A ntepartum anemia complicating Take 1 Capsule by mouth 2 times a day as needed for Constipation. 60 Capsule 5 02/29/2024 Active Vitamin B-12 1000 MCG Oral Tablet (Cyanocobalamin)Indic ations:Other dietary vitamin B12 deficiency anemia Take 1 Tablet by mouth in the morning. 90 Tablet 1 02/29/2024 Active documented as of this encounter (statuses as of 05/14/2024) Active Problems Problem Noted Date Diagnosed Date Positive GBS test 04/26/2024 Multigravida of advanced maternal age in third t rimester 04/24/2024 Uterine size date discrepancy 04/24/20 24 Iron deficiency anemia 03/07/2024 Iron deficiency anemia 03/07/2024 Other dietary vitamin B12 deficiency anemia 02/12 Antepartum anemia complicating 024 Abnormal glucose tolerance in mother complicatin g 02/29/2024 Multigravida of advanced maternal age in second trimester 12/28/2023 Last Assessment & Plan: I reviewed the ultrasound with her. The the anatomy that was visualized appears unremarkable and the biometry is appropriate for the gestational age. The amniotic fluid volume is subjectively normal and the fetus is in the breech presentation. I reviewed her low risk noninvasive screen in light of the normal ultrasound findings. At this point, there is no clinical indication for return. Normal intrauterine , antepartum 2022 Hypothyroidism (acquired) 08/12/2023 Multiple thyroid nodules 08/12/2023 History of lump of right breast 06/04/2022 Overview: 05/2022 "Received from the department of pathology is the histology diagnosis of benign breast tissue with fibroadenomatoid changes. The histology diagnosis is concordant with imaging findings. Short-term interval follow-up right breast ultrasound12/06 reported as "stable" Rh negative, antepartum 12/14/2018 Overview: Pt states her is also RH neg, and plans to decline rhogam as she did with her first . Plans to bring in records. Estimated Date of Delivery Comme nts Yes 05/22/2024 Based on last me nstrual period of 08/16/2023 documented as of this encounter (statuses as of 05/14/2024) Resolved Problems Problem Noted Date Diagnosed Date Resolved Date GBS (group B Streptococcus c arrier), +RV culture, currently 04/30/2024 04/30/2024 Rh negative, antepartum 11/11/202310/15 Overview: O neg GBS (group B Streptococcus c arrier), +RV culture, currently 07/05/2019 07/29/2019 Abnormal chromosomal and gen etic finding on screening of mother 02/13/2019 02/04/2021 Abnormal findings on screening 01/22/2019 07/29/2019 Overview: Panorama testing done at 11wk, insufficient cells. Panorama will accept re-draw, message to pt. 02/19/2019 - panorama no results X 2. Pt opted for amnio. Normal microarray. -Frances Torres CNM , normal first 12/11/201807/15 NO KNOWN PROBLEMS 08/27/2010 08/12/2023 ROUTINE MEDICAL EXAM 04/10/2003 010 documented as of this encounter (statuses as of 05/14/2024) Immunizations Name Administration Dates Next Due PPD 07/05/2006 TDAP, Age 7 and older, IM (Adacel) 05/14/2008 documented as of this encounter Social History Tobacco Use Types Packs/Day Years Used Date Smoking Tobacco: Former Cigarettes 0.5 8 0 11/14/2003 - 11/14/2011 Smokeless Tobacco: Never Tobacco Cessation:Counseling Given: Not Answered Alcohol Use Standard Drinks/Week Comments Not Currently 0 (1 standard drink = 0.6 oz pur e alcohol) occas AUDIT-C Answer Date Recorded Frequency of Alcohol Consumption Never 12/11/2018 Average Number of Drinks Not on file 019 Frequency of Binge Drinking Not on file 11/15 PHQ-2 Answer Date Recorded PHQ-2 Score 0 06/01/2019 Hunger Vital Sign Answer Date Recorded Within the past 12 months, y ou worried that your food would run out before you got the money to buy more. Never true 10/17/20 23 Within the past 12 months, t he food you bought just didn't last and you didn't have money to get more. Never true 10/17/2023 [place] Depression Scale Answer Date Recorded [place] Depression Scale Total 0 04/30/2024 The thought of harming myself has occurred to me . Never 04/30/2024 Childcare Answer Date Recorded Do you feel overwhelmed with taking care of a child, family member or friend? No 10/17/2023 Does your family need help f inding childcare? (Household - for ages 0-17 years) Not on file 10/17/2023 Clothing Answer Date Recorded Have you been unable to get clothing when it was really needed? No 10/17/2023 Is your family able to get c lothes or diapers when needed? (Household - for ages 0-17 years) Not on file 10/17/2023 Personal Safety Answer Date Recorded Do you feel unsafe or have concerns for your saf ety? No 10/17/2023 Do you have concerns for you r family's safety? (Household - for ages 0-17 years) Not on file 10/17/2023 Utilities Answer Date Recorded Do you have trouble paying y our heating, water, or electric bill? No 10/17/2023 Is your family able to pay t he heat, water, or electric bill? (Household - for ages 0-17 years) Not on file 10/17/2023 Does your family have access to good internet? (Household - for ages 0-17 years) Not on file 10/17/2023 Employment Status Answer Date Recorded Are you unemployed or without regular income? No 10/17/2023 Does the household have a re gular source of income? (Household - for ages 0-17 years) Not on file 10/17/2023 Social Connections Answer Date Recorded How often do you feel lonely or isolated from th ose around you? Never 10/17/2023 Financial Resource Strain Answer Date R ecorded Do you have any trouble payi ng for your medications, or do you think you might in the future? No 10/17/2023 Does your family have troubl e paying for medicine? (Household - for ages 0-17 years) Not on file 10/17/2023 Transportation Needs Answer Date Record ed READ ONLY Do you have troubl e getting a ride to medical visits or work? Never True 10/17/2023 Does your family have a hard time getting a ride to doctors visits? (Household - for ages 0-17 years) Not on file 10/17/2023 Has lack of transportation k ept you from medical appointments, meetings, work, or from getting things needed for daily living? Check all that apply. (Adult - for ages 18 years and over) Not on file 10/17/2023 Do you (or your family) have trouble finding or paying for a ride (transportation)? (Household - for ages 0-17 years) Not on file 10/17/2023 Housing Stability Answer Date Recorded Do you currently live in a s helter or have no steady place to sleep at night? No 10/17/2023 READ ONLY Do you think you a re at risk of becoming homeless? No 10/17/2023 Does your family worry about paying for your home or becoming homeless? (Household - for ages 0-17 years) Not on file 1 12/18/2022 Are you homeless or worried that you might be in the future? (Adult - for ages 18 years and over) Not on file Are you (or your family) brooke eless or worried that you might be in the future? (Household - for ages 0-17 years) Not on file Food Insecurity Answer Date Recorded Do you need food for this week? No 10/17/2023 Are you able to get enough f ood for your family? (Household - for ages 0-17 years) Not on file 10/17/2023 Does your family need food t his week? (Household - for ages 0-17 years) Not on file 10/17/2023 Do you always have enough fo od for your family? (Household - for ages 0-17 years) Not on file 10/17/2023 Estimated Date of Delivery Comme nts Yes 05/22/2024 Based on last me nstrual period of 08/16/2023 Sex and Gender Information Value Date Recorded Sex Assigned at Female 10/17/2023 10:02 AM EST Gender Identity Female 10/17/2023 10:02 AM EST Sexual Orientation Straight 10/17/2023 10 :02 AM EST Job Start Date Occupation Industry Not on file Not on file Not on file documented as of this encounter Last Filed Vital Signs Vital Sign Reading Time Taken Comments Blood Pressure 130/78 05/14/2024 11:44 AM EDT Pulse - - Temperature 36.6 C (97.9 F) 05/14/2024 11:44 AM E DT Respiratory Rate - - Oxygen Saturation - - Inhaled Oxygen Concentration - - Weight 88 kg (194 lb) 05/14/2024 11:44 AM EDT Height - - Body Mass Index 32.28 04/08/2024 2:22 PM EDT documented in this encounter Progress Notes * Juany Meyer PA-C - 05/14/2024 11:50 AM EDT Chari Vazquez is a 39 year old female here for her routine OB appointment at 38w6d. Her Estimated Date of Delivery: 05/22/24 REVIEW OF SYSTEMS: She affirms movement. Denies vaginal bleeding, LOF, contractions, N/V, headaches PHYSICAL EXAM: Filed Vitals: 05/14/24 1144 BP: 130/78 Temp: 36.6 C (97.9 F) Weight: 88 kg (194 lb) Shoe Stamper Documentation Provider requested swage toolsetter. Name of swage toolsetter: Percy Jackson LPN ASSESSMENT/PLAN: (O26.899, Z67.91) Rh negative, antepartum (E03.9) Hypothyroidism (acquired) Plan: TSH Results: Lab Results Component Value Date/Time TSH - [facility] 0.49 04/10/2024 12:58 PM TSH - [facility] 1.29 03/09/2024 08:56 AM TSH - [facility] 0.62 02/08/2024 07:09 AM TSH - [facility] 2.50 10/20/2019 08:25 AM TSH - [facility] 1.16 06/07/2005 03:29 PM TSH - [facility] 3.45 12/29/2021 10:39 AM (O09.522) Multigravida of advanced maternal age in second trimester (D51.3) Other dietary vitamin B12 deficiency anemia (O99.019) Antepartum anemia complicating Plan: s/p iron infusions (O99.810) Abnormal glucose tolerance in mother complicating Plan: passed 3 hour 03/09/24 (B95.1) Positive GBS test Plan: allergies updated (Z3A.38) 38 weeks gestation of - Advised when to call: Vaginal bleeding, leaking of fluid, regular contractions every five minutesfor at least an hour, decreased movement, any other questions or concerns. Reviewed [facility] - IOL [facility] 05/28/24 - RTO in 1 week for FAYE Meyer PA-C documented in this encounter Nursing Notes * Noreen Bates LPN - 05/14/2024 11:41 AM EDT Chief Complaint Patient presents with Return Visit 38w6d Pt is with no concerns. IOL scheduled for 05/28/2024 GBS + Noreen Bates LPN documented in this encounter Plan of Treatment Upcoming Encounters Date Type Department Care Team (Late st Contact Info) Description 05/21/2024 10:30 AM EDT Office Visit Gynecology/Obstetrics, [place] [address] [place] [address] Ruthann Huntley CNM [address] [place] [phone] 08/30/2024 2:30 PM EDT Office Visit Dermatology, Kimberlee Walsh [address] [place] [address] Dolores Ayala PA-C [address] [place] [address] Health Maintenance Due Date Last Done Comments DTaP,Tdap,and Td Vaccines (6 - Td or Tdap) 05/14/2018 05/14/2008, 04/10/2003, 02/02/1991, Additional history exists Depression Screening 05/29/2020 05/29/2019 COVID-19 Vaccine (2022- season) 2023 Influenza Vaccine (FLU shot) (#1) 2024 TSH 04/10/2025 04/10/2024, 02/13, 02/08/2024, Additional history exists Pap Smear 08/12/2026 08/12/2023, 08/15, 05/18/2018, Additional history exists Diabetes Screening 11/02/2026 11/02/2023, 0 08/10/2023, 03/24/2022, Additional history exists Cervical Cancer Screening 08/12/2028 HPV/Co-Test 08/12/2028 08/12/2023 Hepatitis B Completed 02/09/2000, 11/15, 09/29/1999 GARDASIL-HPV IMMUNIZATION SERIES Aged Out No longer eligible based on patient's age to complete this topic MENINGOCOCCAL (MENACTRA/MENVEO) Aged Out No longer eligible based on patient's age to complete this topic Pneumococcal Vaccine: Pediatrics (0 to 5 Years) and At-Risk Patients (6 to 64 Years) Aged Out No longer eligible based on patient's age to complete this topic documented as of this encounter Medical Devices Not on filedocumented as of this encounter Visit Diagnoses Diagnosis 38 weeks gestation of - Primary state, incidental Rh negative, antepartum Rhesus isoimmunization affecting management of mother, antepartum condition Hypothyroidism (acquired) Unspecified hypothyroidism Multigravida of advanced maternal age in second trimester Other dietary vitamin B12 deficiency anemia Antepartum anemia complicating Anemia, antepartum Abnormal glucose tolerance in mother complicating Abnormal maternal glucose tolerance, complicating , childbirth, or the puerperium, unspecified as to episode of care Positive GBS test documented in this encounter Care Teams Jogger Operator Relationship Specialty Start Date End Date Bc Calles Jr., DO [address] [facility] [place] [phone] PCP - General Family Medicine 06/03/16 documented as of this encounter
--- OUTSIDE RECORDS SUMMARY | 2024-05-21 05:53 | External Medical Summary | Summary of Care ---
Author Name Unknown Organization [facility] Address [address] [place] [address] Phone [phone] Care Team Providers Care Care Rep Name Role Phone Stevan Freedman DO, Kenneth Primary Care Provider [phone] Reason for Visit * Reason Onset Date Comments Anemia Follow-Up 05/11/2024 Encounter Details Date Type Department Care Team (Late st Contact Info) Description 05/11/2024 8:30 AM EDT Pharmacy Pharmacy, [place] [address] [place] [address] Clinic, Anemia [address] [place] [address] Iron deficiency anemia, unspecified iron deficiency anemia type* Allergies No known active allergiesdocumented as of this encounter (statuses as of 05/11/2024) Medications Medication Sig Dispensed Refills Start Date [...] as of this encounter (statuses as of 05/11/2024) Active Problems Problem Noted Date Diagnosed Date [...] as of this encounter (statuses as of 05/11/2024) Resolved Problems Problem Noted Date Diagnosed Date Resolved Date GBS (group B Streptococcus c arrier), +RV culture, currently 04/30/2024 04/30/2024 Rh negative, antepartum 11/11/202310/15 Overview: O neg GBS (group B Streptococcus c arrier), +RV culture, currently 07/05/2019 07/29/2019 Abnormal chromosomal and gen etic finding on screening of mother 02/13/2019 02/04/2021 Abnormal findings on screening 01/22/2019 07/29/2019 Overview: Panorama testing done at [facility], insufficient cells. Panorama will accept re-draw, message to pt. 02/19/2019 - panorama no results X 2. Pt opted for amnio. Normal microarray. -Frances Torres CNM , normal first 12/11/201807/15 NO KNOWN PROBLEMS 08/27/2010 08/12/2023 ROUTINE MEDICAL EXAM 04/10/2003 010 documented as of this encounter (statuses as of 05/11/2024) Immunizations Name Administration Dates Next Due PPD 07/05/2006 TDAP, Age 7 and older, IM (Adacel) 05/14/2008 documented as of this encounter Social History Tobacco Use Types Packs/Day Years Used Date Smoking Tobacco: Former Cigarettes 0.5 8 0 11/14/2003 - 11/14/2011 Smokeless Tobacco: Never Alcohol Use Standard Drinks/Week Comments Not Currently [...] money to get more. Never true 10/17/2023 [place] Depression Scale Answer Date Recorded [place] Depression Scale Total 0 04/30/2024 The thought [...] on file documented as of this encounter Progress Notes * Osiris Velazquez RPh - 05/11/2024 8:21 AM EDT Patient Phone Numbers Called patient to review labs from 05/07. GA: 38w3d Estimated Date of Delivery: 05/22/24 Hgb: 12.7 g/dL TSAT: 22 % Ferritin: 160 ng/mL B12: 444 pg/mL FA: >20.0 ng/mL Patient is s/p Venofer 300mg IV x 3 on 03/19, 03/26 and 04/03.. Hgb is within target range for the third trimester. Iron studies within target range. Per chart review, patient is taking B12 1000mcg daily and Vitron C twice daily and appears to be tolerating it without issue. Patient is not really feeling any differently. Plan: No anemia pharmacological intervention at this time. Anemia Clinic will sign off at this time. Thank you for allowing us to participate in the care of this patient. Thanks, Osiris Velazquez [facility] Clinical Pharmacist [facility] Anemia Clinic (P: [phone]) documented in this encounter Plan of Treatment Upcoming Encounters Date Type Department Care Team (Late st Contact Info) Description 05/14/2024 11:45 AM EDT Office Visit Gynecology/Obstetrics, [place] [address] [address] Juany Meyer PA-C [address] [phone] 05/21/2024 10:30 AM EDT Office Visit Gynecology/Obstetrics, [place] [address] [place] [phone] Ruthann Huntley CNM [address] [place] [phone] 08/30/2024 2:30 PM EDT Office Visit Dermatology, [place] [address] [place] [address] Dolores Ayala PA-C [address] [place] [address] Health Maintenance Due Date Last Done Comments DTaP,Tdap,and Td Vaccines (6 - Td or Tdap) 05/14/2018 05/14/2008, 04/10/2003, 02/02/1991, Additional history exists Depression Screening 05/29/2020 05/29/2019 COVID-19 Vaccine ( season) 2023 Influenza Vaccine (FLU shot) (Season Ended) 2024 TSH 04/10/2025 04/10/2024, 02/13, 02/08/2024, Additional [...] as of this encounter Visit Diagnoses Diagnosis Iron deficiency anemia, unspecified iron deficiency anemia type- Primary documented in this encounter Care Teams Care Rep Relationship Specialty Start Date End Date Bc Calles Jr., DO [address] [facility] [place] [address] PCP - General Family Medicine 06/03/16 documented as of this encounter
--- OUTSIDE RECORDS SUMMARY | 2024-05-21 05:54 | External Medical Summary ---
Author Name Unknown Address Unknown Organization K01:[place] [facility] [place] [address] [place] [address] Laboratory Report Ordering Provider Test Date Status FADI LONG 05/07/2024 11:24:28 Final Observation Date Value Abnormality Reference (Units ) Status SYNC LEUKOCYTES IN BLOOD BY AUTOMATED COUNT 05/07/2024 11:24:28 12.72 Above high normal 4.00-10.80 (K/uL) Final Segs 05/07/2024 11:24:28 72.2 40.0-75.0 (%) Final Lymphs % 05/07/2024 11:24:28 14.9 Below low normal 18.0-42.0 (%) Final Monos 05/07/2024 11:24:28 9.4 1.0-11.0 (%) Final Eosinophils 05/07/2024 11:24:28 0.5 0.0-6.0 (%) Final Basos 05/07/2024 11:24:28 0.6 0.0-2.0 (%) Final Immature Granulocyte, Percent 05/07/2024 11:24:28 2.4 Above high normal 0.0-2.0 (%) Final Absolute Segs 05/07/2024 11:24:28 9.21 Above high normal 1.80-7.70 (K/uL) Final Lymphs, absolute 05/07/2024 11:24:28 1.89 1.00-4.80 (K/ul) Final Monos, Abs 05/07/2024 11:24:28 1.19 Above high normal 0.00-1.10 (K/uL) Final Eos, Abs 05/07/2024 11:24:28 0.06 0.00-0.70 (K/uL) Final Basos, Abs 05/07/2024 11:24:28 0.07 0.00-0.20 (K/uL) Final Immature Granulocytes, Number 05/07/2024 11:24:28 0.30 Above high normal 0.00-0.20 (K/uL) Final Performing Location [facility] [place] [facility] [address] [facility] [place] [address]
--- OUTSIDE RECORDS SUMMARY | 2024-05-21 05:54 | External Medical Summary | Summary of Care ---
Author Name Unknown Organization [facility] Address [address] [facility] [place] [address] Phone [phone] Care Team Providers Care Legal Stenographer Name Role Phone Stevan Freedman DO, Kenneth Primary Care Provider [phone] Encounter Details Date Type Department Care Team (Late st Contact Info) Description 05/07/2024 Telephone Gynecology/Obstetrics, [place] [address] [place] [address] Princess Garza MD [address] [place] [address] Allergies No known active allergiesdocumented as of this encounter (statuses as of 05/07/2024) Medications Medication Sig Dispensed Refills Start Date [...] as of this encounter (statuses as of 05/07/2024) Active Problems Problem Noted Date Diagnosed Date [...] as of this encounter (statuses as of 05/07/2024) Resolved Problems Problem Noted Date Diagnosed Date [...] Pt opted for amnio. Normal microarray. -Frances Torres, TANA , normal first 12/11/201807/15 NO KNOWN PROBLEMS 08/27/2010 08/12/2023 ROUTINE MEDICAL EXAM 04/10/2003 010 documented as of this encounter (statuses as of 05/07/2024) Immunizations Name Administration Dates Next Due DTP Vaccine 02/02/1991, 9,1985, 985,1985 Hepatitis B, 0-19 yrs 02/09/2000,12/07/1999,09/14 MMR - Measles/Mumps/Rubella Vaccine 02/02/1991,0 04/01/1986 OPV - Polio Virus Vaccine (Oral) 991,04/18/1989,1985, 985,1985 PPD 07/05/2006, 5,04/24/2004, 004 TB Glory Test 10/20/1999,1985 TD - Tetanus/Diptheria (ADULT) 04/10/2003 TDAP, Age 7 and older, IM (Adacel) [...] money to get more. Never true 10/17/2023 [place] Depression Scale Answer Date Recorded [place] Depression Scale Total 0 04/30/2024 The thought [...] for ages 0-17 years) Not on file 12 /02/2023 Food Insecurity Answer Date Recorded Do you [...] on file documented as of this encounter Miscellaneous Notes * Telephone Encounter - Princess Garza MD - 05/07/2024 2:00 PM EDT Please schedule patient for post date IOL at [facility] ([place] patient) Also needs the collection agent number for there Thanks! documented in this encounter Plan of Treatment Upcoming Encounters Date Type Department Care Team (Late st Contact Info) Description 05/09/2024 9:30 AM EDT Pharmacy Pharmacy, [place] [address] [place] [facility] [place] [address] Clinic, [place] [address] [place] [address] 05/14/2024 11:45 AM EDT Office Visit Gynecology/[place] [address] [place] [address] Juany Meyer PA-C [address] [place] [address] 05/21/2024 10:30 AM EDT Office Visit Gy[place]cology/Obst[place] [address] [place] [address] Audi Ruthann A, [facility] [address] [place] [phone] 08/30/2024 2:30 PM EDT Office Visit Dermatology, [place] [address] [place] [address] Dolores Ayala PA-C [address] [place] [address] Health Maintenance Due Date Last Done Comments [...] Not on filedocumented as of this encounter Care Teams Legal Stenographer Relationship Specialty Start Date End Date Bc Calles Jr., DO [address] [facility] [place] [phone] PCP - General Family Medicine 06/03/16 documented as of this encounter
--- OUTSIDE RECORDS SUMMARY | 2024-05-21 05:54 | External Medical Summary ---
Author Name Unknown Address Unknown Organization K01:[facility]ATORY [facility] [place] - [facility] [place]note 2] [address] [facility] [address] Laboratory Report Ordering Provider Test Date Status FADI LONG 05/07/2024 11:24:28 Final Observation Date Value Abnormality Reference (Units ) Status Retic, % (auto) 05/07/2024 11:24:28 3.50 Above high normal 0.80-1.90 (%) Final Reticulocytes, Absolute 05/07/2024 11:24:28 141.8 Above high normal 31.3-100.1 (K/uL) Final Reticulocyte fraction, immature 05/07/2024 11:24:28 23.8 Above high normal 2.5-20.6 (%) Final Reticulocyte HGB 05/07/2024 11:24:28 34.3 29.7-37.4 (pg) Final Performing Location LABORATORY [facility] [place] - [address] [facility] [address]
--- OUTSIDE RECORDS SUMMARY | 2024-05-21 05:54 | External Medical Summary | Summary of Care ---
Author Name Unknown Organization [facility] Address [address] [place] [address] Phone [phone] Care Team Providers Care Grey Washer Name Role Phone Stevan Freedman DO, Kenneth Primary Care Provider [phone] [phone] Encounter Details Date Type Department Care Team (Late st Contact Info) Description 05/07/2024 Orders Only Outcomes Research Department [address] [place] [address] Edilma Camacho CHRA [facility] Other*[id number] Allergies No known active allergiesdocumented as of [...] 05/07/2024) Immunizations Name Administration Dates Next Due PPD [...] money to get more. Never true 10/17/2023 [place] Depression Scale Answer Date Recorded [place] Depression Scale Total 0 04/30/2024 The thought [...] 10/17/2023 Does the household have a re lar source of income? (Household - for ages [...] on file documented as of this encounter Plan of Treatment Upcoming Encounters Date Type Department Care Team (Late st Contact Info) Description 05/07/2024 1:45 PM EDT Office Visit Gynecology/Obstetrics, [place] [address] [place] [address] Princess Garza MD [address] [facility] [place] [address] 05/09/2024 9:30 AM EDT Pharmacy Pharmacy, [place] [address] [place], [place] [phone] [facility] [address] [place], [place] [phone] 05/14/2024 11:45 AM EDT Office Visit Gynecology/Obstetrics, [place] [address] [place] [address] Juany Meyer PA-C [address] [facility] [place] [address] 05/21/2024 10:30 AM EDT Office Visit Gynecology/Obstetrics, [place] [address] [facility] [place] [address] Ruthann Huntley CNM [address] [facility] [place] [phone] 08/30/2024 2:30 PM EDT Office Visit Dermatology, Kimberlee Walsh [address] [place] [address] Dolores Ayala PA-C [address] [place] [address] Scheduled Orders Name Type Priority Associated Diagnoses Orde r Schedule MYCODE SUBSEQUENT ADULT Lab Routine My[facility] Research Other*[id number] Every 6 Months for 2 Occurrences starting 05/07/2024 until 05/27/2025 Health Maintenance Due Date Last Done Comments [...] as of this encounter Visit Diagnoses Diagnosis 37 weeks gestation of - Primary state, incidental Rh negative, antepartum Rhesus isoimmunization affecting management of mother, antepartum condition GBS (group B Streptococcus carrier), +RV culture, currently Supervision of other high-risk Hypothyroidism (acquired) Unspecified hypothyroidism Multigravida of advanced maternal age in third trimester Antepartum anemia complicating Anemia, antepartum Abnormal glucose tolerance in mother complicating Abnormal maternal glucose tolerance, complicating , childbirth, or the puerperium, unspecified as to episode of care Supervision of high risk in third trimester Unspecified high-risk MyCode Research Other*[id number] documented in this encounter Care Teams Grey Washer Relationship Specialty Start Date End Date Bc Calles Jr., DO [address] [place] [address] PCP - General Family Medicine 06/03/16 documented as of this encounter
--- OUTSIDE RECORDS SUMMARY | 2024-05-21 05:54 | External Medical Summary | Summary of Care ---
Author Name Unknown Organization [facility] Address [address] [place] [facility] [place] [address] Phone [phone] Care Team Providers Care Stencil Typist Name Role Phone Stevan Freedman DO, Kenneth Primary Care Provider [phone] [phone] Reason for Visit * Reason Comments Return Visit 36w6d Encounter Details Date Type Department Care Team (Late st Contact Info) Description 04/30/2024 1:00 PM EDT Office Visit Gynecology/Obstetri Kimberlee ibrahim [address] [facility] [place] [address] Nya Bella PA-C [address] [facility] [place] [address] 36 weeks gestation of *; Rh negative, antepartum; Hypothyroidism (acquired); Multigravida of advanced maternal age in second trimester; Other dietary vitamin B12 deficiency anemia; Antepartum anemia complicating ; Abnormal glucose tolerance in mother complicating ; GBS (group B Streptococcus carrier), +RV culture, currently Allergies No known active allergiesdocumented as of this encounter (statuses as of 04/30/2024) Medications Medication Sig Dispensed Refills Start Date [...] as of this encounter (statuses as of 04/30/2024) Active Problems Problem Noted Date Diagnosed Date [...] as of this encounter (statuses as of 04/30/2024) Resolved Problems Problem Noted Date Diagnosed Date [...] as of this encounter (statuses as of 04/30/2024) Immunizations Name Administration Dates Next Due PPD [...] money to get more. Never true 10/17/2023 [place] Depression Scale Answer Date Recorded [place] Depression Scale Total 0 04/30/2024 The thought of harming myself has occurred to me . Never 04/30/2024 Estimated Date of Delivery Comme nts Yes [...] Sign Reading Time Taken Comments Blood Pressure 114/58 04/30/2024 1:07 PM EDT Pulse - - Temperature 37.2 C (99 F) 04/30/2024 1:07 PM EDT Respiratory Rate - - Oxygen Saturation - - Inhaled Oxygen Concentration - - Weight 86.6 kg (191 lb) 04/30/2024 1:07 PM EDT Height - - Body Mass Index 31.78 04/08/2024 2:22 PM EDT documented in this encounter Progress Notes * Nya Bella PA-C - 04/30/2024 1:06 PM EDT Chari Vazquez is a 39 year old female here for her routine OB appointment at 36w6d Her Estimated Date of Delivery: 05/22/24 REVIEW OF SYSTEMS: She affirms movement. Denies vaginal bleeding, LOF, contractions, N/V, headaches PHYSICAL EXAM: Filed Vitals: 04/30/24 1307 BP: 114/58 Temp: 37.2 C (99 F) TempSrc: Tympanic Weight: 86.6 kg (191 lb) +FHT 140s Fundal height 36 ASSESSMENT/PLAN: 36 weeks gestation of (Primary) Rh negative, antepartum Hypothyroidism (acquired) Multigravida of advanced maternal age in second trimester Other dietary vitamin B12 deficiency anemia Antepartum anemia complicating Abnormal glucose tolerance in mother complicating Supervision of - labor precautions and kick counts reviewed - RTO in 1 week Nya Bella PA-C documented in this encounter Nursing Notes * Anna Longoria CMA - 04/30/2024 1:06 PM EDT Chief Complaint Patient presents with Return Visit 36w6d documented in this encounter Plan of Treatment Upcoming Encounters Date Type Department Care Team (Late st Contact Info) Description 05/02/2024 9:30 AM EDT Pharmacy Pharmacy, [place] [address] [place] [address] Clinic, [facility] [address] [place] [address] 05/07/2024 1:45 PM EDT Office Visit Gynecology/Obst[address]s, [address] [address] Princess Garza MD [address] [place] [place] [address] 05/14/2024 11:45 AM EDT Office Visit Gynecology/Obstetrics, [place] [address] [address] Juany Meyer PA-C [address] [place] [address] 05/21/2024 10:30 AM EDT Office Visit Gynecology/Obstetrics, [place] [address] [place] [address] Ruthann Huntley CNM [address] [place] [address] 08/30/2024 2:30 PM EDT Office Visit Dermatology, [place] [address] [place] [address] Dolores Ayala PA-C [address] [place] [address] Health Maintenance Due Date Last Done Comments [...] as of this encounter Visit Diagnoses Diagnosis 36 weeks gestation of - Primary state, incidental Rh negative, antepartum Rhesus isoimmunization affecting management of mother, antepartum condition Hypothyroidism (acquired) Unspecified hypothyroidism Multigravida of advanced maternal age in second trimester Other dietary vitamin B12 deficiency anemia Antepartum anemia complicating Anemia, antepartum Abnormal glucose tolerance in mother complicating Abnormal maternal glucose tolerance, complicating , childbirth, or the puerperium, unspecified as to episode of care GBS (group B Streptococcus carrier), +RV culture, currently Supervision of other high-risk documented in this encounter Care Teams Stencil Typist Relationship Specialty Start Date End Date Bc Calles Jr., DO [address] [facility] [place] [address] PCP - General Family Medicine 06/03/16 documented as of this encounter
--- OUTSIDE RECORDS SUMMARY | 2024-05-21 05:54 | External Medical Summary | Summary of Care ---
Author Name Unknown Organization [facility] Address [address] [place] [address] Phone [phone] Care Team Providers Care Client Development Manager Name Role Phone Stevan Freedman DO, Kenneth Primary Care Provider [phone] [phone] Reason for Visit * Reason Onset Date Comments Anemia Follow-Up 05/09/2024 Encounter Details Date Type Department Care Team (Late st Contact Info) Description 05/09/2024 9:30 AM EDT Pharmacy Pharmacy, [place] [address] [place] [address] Clinic, An[place] [address] [place] [address] Iron deficiency anemia, unspecified iron deficiency anemia type* Allergies No known active allergiesdocumented as of this encounter (statuses as of 05/09/2024) Medications Medication Sig Dispensed Refills Start Date [...] as of this encounter (statuses as of 05/09/2024) Active Problems Problem Noted Date Diagnosed Date [...] as of this encounter (statuses as of 05/09/2024) Resolved Problems Problem Noted Date Diagnosed Date Resolved Date GBS (group B Streptococcus c arrier), +RV culture, currently 04/30/2024 04/30/2024 Rh negative, antepartum 11/11/202310/15 Overview: O neg GBS (group B Streptococcus c arrier), +RV culture, currently 07/05/2019 07/29/2019 Abnormal chromosomal and gen etic finding on screening of mother 02/13/2019 02/04/2021 Abnormal findings on screening 01/22/2019 07/29/2019 Overview: Panorama testing done at [facility], insufficient cells. Panorama will accept re-draw, message to pt. 02/19/2019 - panorama no results X 2. Pt opted for amnio. Normal microarray. -Frances Torres CNM , normal first 12/11/201807/15 NO KNOWN PROBLEMS 08/27/2010 08/12/2023 ROUTINE MEDICAL EXAM 04/10/2003 010 documented as of this encounter (statuses as of 05/09/2024) Immunizations Name Administration Dates Next Due PPD [...] money to get more. Never true 10/17/2023 [place] Depression Scale Answer Date Recorded [place] Depression Scale Total 0 04/30/2024 The thought [...] this encounter Progress Notes * Osiris Velazquez [facility] - 05/09/2024 11:36 AM EDT Patient Phone Numbers Called patient to review labs from 05/07. ILDABlane. GA: 38w1d Estimated Date of Delivery: 05/22/24 Hgb: 12.7 [...] appears to be tolerating it without issue. Plan: No anemia pharmacological intervention at this time. Anemia Clinic will sign off at this time. Thank you for allowing us to participate in the care of this patient. Thanks, Osiris Velazquez [facility] Clinical Pharmacist [facility]emia [facility] (P: [phone]) 05/09/2024 11:36 AM documented in this encounter Plan of Treatment Upcoming Encounters Date Type Department Care Team (Late st Contact Info) Description 05/14/2024 11:45 AM EDT Office Visit Gynecology/Obstetrics, [place] [address] [place] [place] [address] Juany Meyer PA-C [address] [place] [address] 05/16/2024 9:30 AM EDT Pharmacy Pharmacy, [place] [address] [facility] [place] [address] Clinic, Anemia [facility] [address] [facility] [place] [address] 05/21/2024 10:30 AM EDT Office Visit Gynecology/Obstetrics, [place] [address] [place] [address] Ruthann Huntley CN [address] [place] [phone] 08/30/2024 2:30 PM EDT Office Visit Dermatology, [place] [address] [place] [address] Dolores Ayala PA-C [address] [place] [phone] Health Maintenance Due Date Last Done Comments [...] Primary documented in this encounter Care Teams Client Development Manager Relationship Specialty Start Date End Date Bc Calles Jr., DO [address] [facility] [place] [address] PCP - General Family Medicine 06/03/16 documented as of this encounter
--- OUTSIDE RECORDS SUMMARY | 2024-05-21 05:54 | External Medical Summary ---
Author Name Unknown Address Unknown Organization K01:LABORATORY [facility] [place] - [facility] [address] [facility] [place] [address] Laboratory Report Ordering Provider Test Date Status FADI LONG 05/07/2024 11:24:28 Final Observation Date Value Abnormality Reference (Units ) Status WBC, Total 05/07/2024 11:24:28 12.72 Above high normal 4.00-10.80 (K/uL) Final RBC 05/07/2024 11:24:28 4.05 3.85-5.15 (M/uL) Final Hemoglobin 05/07/2024 11:24:28 12.7 12.0-15.3 (g/dL) Final HCT 05/07/2024 11:24:28 38.4 36.0-45.2 (%) Final MCV 05/07/2024 11:24:28 94.8 81.5-97.5 (fL) Final MCH 05/07/2024 11:24:28 31.4 27.0-34.0 (pg) Final MCHC 05/07/2024 11:24:28 33.1 32.0-36.0 (g/dL) Final RDW 05/07/2024 11:24:28 15.5 11.5-15.5 (%) Final Platelets 05/07/2024 11:24:28 227 140-400 (K/uL) Final MPV 05/07/2024 11:24:28 10.4 6.6-11.1 (fL) Final Nucleated erythrocytes/100 leukocytes [Ratio] in Blood by Automated count 05/07/2024 11:24:28 0 <=0 (/100 WBCs) Final Performing Location LABORATORY [facility] [place] - [address] [place] [address]
--- OUTSIDE RECORDS SUMMARY | 2024-05-21 05:54 | External Medical Summary ---
Author Name Unknown Address Unknown Organization K01:LABORATORY [place] [address] [place] [address] Laboratory Report Ordering Provider Test Date Status NAMRATA ENGLAND 04/24/2024 15:05:53 Final Observation Date Value Abnormality Reference (Units ) Status Streptococcus agalactiae DNA [Presence] in Specimen by ROBERTA with probe detection 04/24/2024 15:05:53 Positive Abnormal Negative Final Group B Streptococcus detect ed by culture-enhanced PCR (amplified probe). GBS GBSCT - [facility] 04/24/2024 15:05:53 14.2 Final GBS SPCCT - [facility] 04/24/2024 15:05:53 0.0 Final Performing Location LABORATORY [facility] [place] - [address] [place] [address]
--- OUTSIDE RECORDS SUMMARY | 2024-05-21 05:54 | External Medical Summary | Summary of Care ---
Author Name Unknown Organization [facility] Address [address] [place] [facility] [place] [address] Phone [phone] Care Team Providers Care Shoulder Pad Molder Name Role Phone Stevan Freedman DO, Kenneth Primary Care Provider [phone] [phone] Encounter Details Date Type Department Care Team (Late st Contact Info) Description 05/07/2024 Telephone Gynecology/Obstetrics, [place] 400 [place] [address] Princess Garza MD 400 [place] [address] Allergies No known active allergiesdocumented [...] opted for amnio. Normal microarray. -Frances Torres, ATNA , normal first 12/11/201807/15 NO KNOWN PROBLEMS [...] money to get more. Never true 10/17/2023 [place] Depression Scale Answer Date Recorded [place] Depression Scale Total 0 04/30/2024 The thought [...] schedule patient for post date IOL at [facility] ([place] patient) Also needs the personal trainer number for there Thanks! documented in this encounter Plan of Treatment Upcoming Encounters Date Type Department Care Team (Late st Contact Info) Description 05/09/2024 9:30 AM EDT Pharmacy Pharmacy, [place] [address] [place] [facility] [place] [address] Clinic, [place] [address] [place] [address] 05/14/2024 11:45 AM EDT Office Visit Gynecology/[place] [address] [address] Juany Meyer PA-C [address] [place] [address] 05/21/2024 10:30 AM EDT Office Visit Gy[place]cology/[place] [address] [place] [address] Audi Ruthann A, [facility] [address] [place] [phone] 08/30/2024 2:30 PM EDT Office Visit Dermatology, [place] [address] [place] [address] Dolores Ayala PA-C [address] [place] [address] Health Maintenance Due Date Last Done Comments [...] filedocumented as of this encounter Care Teams Shoulder Pad Molder Relationship Specialty Start Date End Date Bc Calles Jr., DO [address] [facility] [place] [address] PCP - General Family Medicine 06/03/16 documented as of this encounter
--- OUTSIDE RECORDS SUMMARY | 2024-05-21 05:54 | External Medical Summary | Summary of Care ---
Author Name Unknown Organization [facility] Address [address] [place] [address] Phone [phone] Care Team Providers Care Big Data Software Engineer Name Role Phone Stevan Freedman DO, Kenneth Primary Care Provider [phone] Reason for Visit * Reason Onset Date Comments Forms Request 05/04/2024 Encounter Details Date Type Department Care Team (Late st Contact Info) Description 05/04/2024 Telephone Gynecology/Obstetrics [facility] [address] [place] [address] Nya Bella PA-C [address] [place], [place] [phone] Forms Request Allergies No known active allergiesdocumented as of [...] 01/22/2019 07/29/2019 Overview: Panorama testing done at [facility], insufficient cells. Panorama will accept re-draw, message [...] money to get more. Never true 10/17/2023 [place] Depression Scale Answer Date Recorded [place] Depression Scale Total 0 04/30/2024 The thought [...] encounter Miscellaneous Notes * Telephone Encounter - Polina Lamar OSA - 05/07/2024 9:19 AM EDT FMLA forms signed and faxed to srinath rasmussen pt a message on cell. Original forms at the [employer] * Telephone Encounter - Polina Lamar OSA - 05/04/2024 8:51 AM EDT FMLA forms placed on Nya's desk to be signed documented in this encounter Plan of Treatment Upcoming Encounters Date Type Department Care Team (Late st Contact Info) Description 05/07/2024 1:45 PM EDT Office [facility] [place] [address] Princess Garza MD [address] [place] [address] 05/09/2024 9:30 AM EDT Pharmacy Pharmacy, [place] [address] [place] [address] [facility] [address] [place] [address] 05/14/2024 11:45 AM EDT Office Visit [facility]necology/[place] [address] [place] [address] Juany Meyer PA-C [address] [place] [address] 05/21/2024 10:30 AM EDT Office Visit Gynecology/Obstetrics, [place] [address] [place] [address] Ruthann Huntley, B[place] [address] [place] [phone] 08/30/2024 2:30 PM EDT Office Visit Dermatology, [place] [address] [place] [address] Dolores Ayala PA-C [address] [place] [address] Health Maintenance Due Date Last Done Comments [...] filedocumented as of this encounter Care Teams Big Data Software Engineer Relationship Specialty Start Date End Date Bc Calles Jr., DO [address] [facility] [place] [phone] PCP - General Family Medicine 06/03/16 documented as of this encounter
--- OUTSIDE RECORDS SUMMARY | 2024-05-21 05:54 | External Medical Summary | Summary of Care ---
Author Name Unknown Organization [facility] Address [address] [place] [address] Phone [phone] Care Team Providers Care Critical Care Specialist Name Role Phone Stevan Freedman DO, Kenneth Primary Care Provider +1 [phone] Reason for Visit * Reason Comments Status Check Encounter Details Date Type Department Care Team (Late st Contact Info) Description 05/02/2024 9:30 AM EDT Pharmacy Pharmacy, [place] [address] [place], [place] [phone] Clinic, Anemia [address] [place], [place] [phone] Iron deficiency anemia, unspecified iron deficiency anemia type* Allergies No known active allergiesdocumented as of this encounter (statuses as of 05/02/2024) Medications Medication Sig Dispensed Refills Start Date [...] as of this encounter (statuses as of 05/02/2024) Active Problems Problem Noted Date Diagnosed Date [...] as of this encounter (statuses as of 05/02/2024) Resolved Problems Problem Noted Date Diagnosed Date Resolved Date GBS (group B Streptococcus c arrier), +RV culture, currently 04/30/2024 04/30/2024 Rh negative, antepartum 11/11/202310/15 Overview: O neg GBS (group B Streptococcus c arrier), +RV culture, currently 07/05/2019 07/29/2019 Abnormal chromosomal and gen etic finding on screening of mother 02/13/2019 02/04/2021 Abnormal findings on screening 01/22/2019 07/29/2019 Overview: Panorama testing done at 11w, insufficient cells. Panorama will accept re-draw, message to pt. 02/19/2019 - panorama no results X 2. Pt opted for amnio. Normal microarray. -Frances Torres CNM , normal first 12/11/201807/15 NO KNOWN PROBLEMS 08/27/2010 08/12/2023 ROUTINE MEDICAL EXAM 04/10/2003 010 documented as of this encounter (statuses as of 05/02/2024) Immunizations Name Administration Dates Next Due PPD [...] money to get more. Never true 10/17/2023 [place] Depression Scale Answer Date Recorded [place] Depression Scale Total 0 04/30/2024 The thought [...] as of this encounter Progress Notes * Deena Sauer dry room operator - 05/02/2024 11:15 AM EDT Attempt 1 Patient is due for [facility]emia clinic labs [facility] reminder message sent today Follow up for results Thank you, Deena Sauer [facility] [facility] 05/02/2024,11:18 AM documented in this encounter Plan of Treatment Upcoming Encounters Date Type Department Care Team (Late st Contact Info) Description 05/07/2024 1:45 PM EDT Office Visit Gynecology/Obstetrics, [place] [address] [place] [address] Princess Garza MD [address] [place] [address] 05/14/2024 11:45 AM EDT Office Visit Gynecology/Obstetrics, [place] [address] [place] [address] Juany Meyer PA-C [address] [place] [address] 05/21/2024 10:30 AM EDT Office Visit Gynecology/Obstetrics, [place] [address] [place] [address] Ruthann Huntley CNM [address] [place] [phone] 08/30/2024 2:30 PM EDT Office Visit Dermatology, Kimber[place] Walsh [address] [place] [address] Dolores Ayala PA-C [address] [place] [address] Health Maintenance Due Date Last Done Comments [...] Primary documented in this encounter Care Teams Critical Care Specialist Relationship Specialty Start Date End Date Bc Calles Jr., DO [address] [facility] [place] [phone] PCP - General Family Medicine 06/03/16 documented as of this encounter
--- OUTSIDE RECORDS SUMMARY | 2024-05-21 05:54 | External Medical Summary ---
Author Name Unknown Address Unknown Organization K01:[place]ORY [facility] [place] [address] [place] [address] Laboratory Report Ordering Provider Test Date Status FADI LONG 05/07/2024 11:24:28 Final Observation Date Value Abnormality Reference (Units ) Status Folic Acid 05/07/2024 11:24:28 >20.0 >4.5 (ng/ mL) Final Performing Location LABORATORY [facility] - [address] [place] [address]
--- OUTSIDE RECORDS SUMMARY | 2024-05-21 05:54 | External Medical Summary | Summary of Care ---
Author Name Unknown Organization [facility] Address [address] [address] Phone [phone] Care Team Providers Care Commercial Horticulture Instructor Name Role Phone Stevan Freedman DO, Kenneth Primary Care Provider [phone] Reason for Visit * Reason Comments Return Visit [id number] Encounter Details Date Type Department Care Team (Late st Contact Info) Description 05/07/2024 1:45 PM EDT Office Visit Gynecology/Obstetri Kimberlee ibrahim [address] [place] [address] Princess Garza MD [address] [place] [address] 37 weeks gestation of *; Rh negative, antepartum; GBS (group B Streptococcus carrier), +RV culture, currently ; Hypothyroidism (acquired); Multigravida of advanced maternal age in third trimester; Antepartum anemia complicating ; Abnormal glucose tolerance in mother complicating ; Supervision of high risk in third trimester; Other dietary vitamin B12 deficiency anemia; Positive GBS test Allergies No known active [...] money to get more. Never true 10/17/2023 [place] Depression Scale Answer Date Recorded [place] Depression Scale Total 0 04/30/2024 The thought [...] Sign Reading Time Taken Comments Blood Pressure 118/64 05/07/2024 1:51 PM EDT Pulse - - Temperature 37.1 C (98.7 F) 05/07/2024 1:51 PM ED T Respiratory Rate - - Oxygen Saturation - - Inhaled Oxygen Concentration - - Weight 87.5 kg (193 lb) 05/07/2024 1:51 PM EDT Height - - Body Mass Index 32.12 04/08/2024 2:22 PM EDT documented in this encounter Progress Notes * Princess Garza MD - 05/07/2024 1:45 PM EDT Patient is 39 year old at 37 6/7 weeks who presents for FAYE visit Denies contractions, leaking of fluid, or vaginal bleeding. Noted good movement Denies headache, blurry vision, RUQ or epigastric pain. Would like to schedule [facility] IOL for post dates GBS pos Problem list reviewed BP 118/64 | Temp 37.1 C (98.7 F) | Wt 87.5 kg (193 lb) | LMP 08/16/2023 | BMI 32.12 kg/m | BSA 2 m FH: 36 FHT: 155 Plan: Labor and preeclampsia warnings reviewed Abx in labor Nursing message sent to schedule post date IOL at [facility] and marketing/sales person number RTC 1 weeks V Greg VALERIO PhD documented in this encounter Plan of Treatment Upcoming Encounters Date Type Department Care Team (Late st Contact Info) Description 05/09/2024 9:30 AM EDT Pharmacy Pharmacy, [place] [address] [place] [address] Clinic, [facility] [address] [place] [address] 05/14/2024 11:45 AM EDT Office Visit Gynecology/Obstetrics, [place] [address] [facility] [place] [address] Juany Meyer PA-C [address] [place] [address] 05/21/2024 10:30 AM EDT Office Visit Gynecology/Obstetrics, [place] [address] [place] [address] Ruthann Huntley CN [address] [place] [phone] 08/30/2024 2:30 PM EDT Office Visit Dermatology, [facility] [place] [address] [place] [address] Dolores Ayala PA-C [address] [place] [address] Health Maintenance Due Date Last Done Comments [...] high risk in third trimester Unspecified high-risk Other dietary vitamin B12 deficiency anemia Positive GBS test documented in this encounter Care Teams Commercial Horticulture Instructor Relationship Specialty Start Date End Date Bc Calles Jr., DO [address] [facility] [place] [address] PCP - General Family Medicine 06/03/16 documented as of this encounter
--- OUTSIDE RECORDS SUMMARY | 2024-05-21 05:54 | External Medical Summary | Summary of Care ---
Author Name Unknown Organization [facility] Address [address] [place] [address] Phone [phone] Care Team Providers Care Ski Topper Name Role Phone Stevan Freedman DO, Kenneth Primary Care Provider [phone] Reason for Visit * Reason Comments Outpatient Testing Encounter Details Date Type Department Care Team (Late st Contact Info) Description 05/07/2024 11:20 AM EDT Laboratory [facility] [address] [place] [phone] [facility], Lab [address] [place] [address] Iron deficiency anemia, unspecified iron deficiency anemia type Allergies No known active allergiesdocumented as of [...] money to get more. Never true 10/17/2023 [place] Depression Scale Answer Date Recorded [place] Depression Scale Total 0 04/30/2024 The thought [...] 05/07/2024 1:45 PM EDT Office [facility]necology[facility] [place] [facility] [address] Princess Garza MD [address] [facility] [place] [address] 05/09/2024 9:30 AM EDT Pharmacy Pharmacy, [place] [address] [place] [address] [place] [address] [place], [place] [phone] 05/14/2024 11:45 AM EDT Office Visit Gynecology[facility]Obstetric[facility] [place] [address] [facility] [address] Juany Meyer PA-C [address] [facility] [place] [address] 05/21/2024 10:30 AM EDT Office Visit Gynecology[facility]stetric[facility] [place] [address] [facility] [address] Ruthann Huntley CNM [address] [facility] [place] [phone] 08/30/2024 2:30 PM EDT Office Visit Dermatology, [place] Walsh [address] [place] [address] Dolores Ayala PA-C [address] [place] [address] Pending Results Name Type Priority Associated Diagnoses Date /Time CBC WITH WBC DIFFERENTIAL Lab Routine Iron deficiency anemia, unspecified iron deficiency anemia type 05/07/2024 11:24 AM EDT IRON SCREEN, INCLUDING TIBC Lab Routine Iron deficiency anemia, unspecified iron deficiency anemia type 05/07/2024 11:24 AM EDT FERRITIN Lab Routine Iron deficiency anemia, unspecified iron deficiency anemia type 05/07/2024 11:24 AM EDT RETICULOCYTE PANEL Lab Routine Iron deficiency anemia, unspecified iron deficiency anemia type 05/07/2024 11:24 AM EDT VITAMIN B12 Lab Routine Iron deficiency anemia, unspecified iron deficiency anemia type 05/07/2024 11:24 AM EDT FOLIC ACID Lab Routine Iron deficiency anemia, unspecified iron deficiency anemia type 05/07/2024 11:24 AM EDT CBC Lab Routine Iron deficiency anemia, unspecified iron deficiency anemia type 05/07/2024 11:24 AM EDT DIFFERENTIAL, AUTOMATED Lab Routine Iron deficiency anemia, unspecified iron deficiency anemia type 05/07/2024 11:24 AM EDT Health Maintenance Due Date Last Done Comments [...] high risk in third trimester Unspecified high-risk Iron deficiency anemia, unspecified iron deficiency anemia type documented in this encounter Care Teams Ski Topper Relationship Specialty Start Date End Date Bc Calles Jr., DO [address] [facility] [place] [address] PCP - General Family Medicine 06/03/16 documented as of this encounter
--- OUTSIDE RECORDS SUMMARY | 2024-05-21 05:54 | External Medical Summary ---
Author Name Unknown Address Unknown Organization K01:[facility] - [address] [place] [address] Laboratory Report Ordering Provider Test Date Status AFDI LONG 05/07/2024 11:24:28 Final Observation Date Value Abnormality Reference (Units ) Status Ferritin 05/07/2024 11:24:28 160 Above high normal 13 -150 (ng/mL) Final Performing Location [facility] [address] [place] [address]
--- OUTSIDE RECORDS SUMMARY | 2024-05-21 05:54 | External Medical Summary ---
Author Name Unknown Address Unknown Organization K01:[facility] - [address] [place] [address] Laboratory Report Ordering Provider Test Date Status FADI LONG 05/07/2024 11:24:28 Final Observation Date Value Abnormality Reference (Units ) Status Iron 05/07/2024 11:24:28 91 33-151 (ug /dL) Final Iron-binding capacity 05/07/2024 11:24:28 422 250-425 (ug/dL) Final Transferrin Sat % 05/07/2024 11:24:28 22 15 -55 (%) Final Performing Location [facility] - [address] [place] [address]
[2024-05-21] MEDS ORDERED: CALCIUM CARBONATE 500 MG CHEWABLE TAB PO PRN (07:36)
[2024-05-21] MEDS ORDERED: ACETAMINOPHEN 325 MG TAB PO PRN ×2 (07:36→15:07)
[2024-05-21] MEDS ORDERED: LIDOCAINE 1% LOCAL 20 ML VIAL INFIL PRN (07:36)
--- NOTE | 2024-05-21 07:47 | History & Physical Report ---
Date of Service May 21, 2024 Assessment & Plan (1) Active labor at term: Plan: 39-year-old -0-0-1 at 39 weeks and 6 days of gestation presenting today with uterine contractions and cervical change, Vital signs stable afebrile, heart rate reassuring, GBS positive, Plan to admit, monitor, labs,PCN for GBS, epidural for pain, Oxytocin as needed Signed out to Dr Sanchez (2) GBS (group B Streptococcus carrier), +RV culture, currently : (3) Multiple thyroid nodules: (4) Hypothyroidism (acquired): History of Present Illness Chief Complaint: Contractions Primary Care Provider: Bc Stevan Patient is a 39 yo-0-0-1 at 39 weeks and 6 days of gestation who has been feeling contractions since 2 AM, when she had pinkish bloody show. Contractions has been every 5 minutes and the pain level is 5 out of 10. She denies leakage of fluid, fever chills, headaches, change in her vision. She reports good movements. Her has been complicated by, 1. Hypothyroidism, takes levothyroxine and sees endocrinology for this, 2. AMA, 3. Abnormal Glucola, 4. GBS positive, 5. Rh- Allergies Allergy/AdvReac Type Severity Reaction Status Date / Time No Known Allergies Allergy Verified 04/26/24 07:53 Home Medications Medication Instructions Recorded Confirmed Type vit no.95-ferrous 1 tab PO DAILY 07/29/19 05/21/24 History fumarate 28 mg-folic acid 800 mcg tablet () selenium 100 mcg tablet 100 mcg PO DAILY 06/14/23 05/21/24 History aspirin 81 mg tablet,delayed 81 mg PO DAILY 12/08/23 05/21/24 History release (Aspir-) levothyroxine 100 mcg tablet 100 mcg PO .COMPLEX #130 tabs 01/09/24 05/21/24 Rx cyanocobalamin (vitamin B-12) 1,000 mcg PO DAILY 04/26/24 05/21/24 History 1,000 mcg tablet ferrous sulfate 325 mg (65 mg 325 mg PO DAILY 04/26/24 05/21/24 History iron) tablet (Feosol) Patient History Medical History Obese Surgical History H/O LEEP 2010 [place] teeth extracted 2002 Family History Grandmother (Paternal) Cancer Grandmother (Maternal) Cancer Grandfather (Maternal) Heart disease Social History Smoking Status: Never smoker Hx Alcohol Use: No Hx Substance Use: No Preferred Language: Cook Islander Communication Ability: Effective Research Tech Required: No Beliefs That Will Affect Care: None marital status: Current Living Situation: Spouse and Family Current Living Situation Comment: house with Other Information That Helps Us Care for You: No Feels Safe at Home: Yes Safety Concerns: Feels Safe At This Time Assistive Devices: None OB History full-term in 2019, 8 pounds 11 ounces 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 STDs, no history of chlamydia, gonorrhea, herpes Review of Systems as per Subjective / HPI Physical Exam Constitutional: WD/WN, vitals as above well developed and well nourished Gastrointestinal (Abdomen): normal bowel sounds, soft, nontender, no hepatosplenomegaly ( gravid) Genitourinary: normal external appearance OB Exam Abdomen: + vertex Manual OB Exam: + cervical dilation 5 cm, + cervical effacement 80% and + station -2 OB Exam Monitor Tracing: + external uterine monitor used and + category I tight bulging bag Results & Data Vital Signs (Past 12 Hours) Vital Signs Temp Pulse Resp BP 05/21/24 07:20 90 119/74 05/21/24 06:04 82 117/74 05/21/24 05:59 36.6 C 18
[2024-05-21] MEDS: LACTATED RINGER'S 1,000 ML IV PRN (07:50)
[2024-05-21] MEDS ORDERED: OXYTOCIN 30 UNITS/NSS 30 UNITS/500 ML BAG IV PRN ×2 (07:52→15:07)
[2024-05-21] MEDS: PENICILLIN GK 6 MU in DEXTROSE 5% 250 ML IV STA (08:09)
[2024-05-21 08:24] LABS: Hematocrit (blood only) 36.5 % (37.0-47.0); Hemoglobin 12.6 g/dl (12.0-16.0); Mean Corpuscular Hgb Conc 34.5 g/dL (32.0-36.0); Mean Corpuscular Volume 89.9 fL (80.0-100.0); Mean Platelet Volume 10.2 fL (9.4-12.4); Platelet Count 205 K/uL (130-400); RDW Coefficient of Variation 14.3 % (11.5-14.5); RDW Standard Deviation 46.7 fL (36.4-46.3); Red Blood Count 4.06 M/uL (4.20-5.40); White Blood Count 18.51 K/ul (4.8-10.8)
--- NOTE | 2024-05-21 10:07 | Anesthesiology Consultation ---
Date of Service May 21, 2024 Assessment & Plan Chart Review Chart Review: Acceptable Risk for Surgery and Patient NOT seen in Pre Admission Testing Consults Requested none ASA ASA2 Proposed Anesthesia Anesthesia Type: Labor Epidural and CSE History Height/Weight Height: 5 ft 5 in Weight: 87.09 kg Allergies Allergy/AdvReac Type Severity Reaction Status Date / Time No Known Allergies Allergy Verified 04/26/24 07:53 Medications Home Medications Medication Instructions Recorded Confirmed Last Taken vit no.95-ferrous 1 tab PO DAILY 07/29/19 05/21/24 05/20/24 13:00 fumarate 28 mg-folic acid 800 mcg tablet () selenium 100 mcg tablet 100 mcg PO DAILY 06/14/23 05/21/24 05/20/24 09:00 aspirin 81 mg tablet,delayed 81 mg PO DAILY 12/08/23 05/21/24 05/20/24 09:00 release (Aspir-) levothyroxine 100 mcg tablet 100 mcg PO .COMPLEX #130 tabs 01/09/24 05/21/24 05/20/24 07:00 cyanocobalamin (vitamin B-12) 1,000 mcg PO DAILY 04/26/24 05/21/24 05/20/24 09:00 1,000 mcg tablet ferrous sulfate 325 mg (65 mg 325 mg PO DAILY 04/26/24 05/21/24 05/20/24 13:00 iron) tablet (Feosol) Active Medications Generic Name Dose Route Start Last Admin Trade Name Freq PRN Reason Stop Dose Admin Lactated Ringer's 1,000 mls @ 150 mls/hr 05/21/24 07:36 05/21/24 07:50 Lr IV 05/23/24 07:35 150 mls/hr .[id number] PRN Administration L&D Protocol Protocol Past Medical History Medical History Obese gerd anemia Exercise / Class Metabolic Activity II 4-5 Yardwork/Stairs/Walk up hill Past Family History Family History Grandmother (Paternal) Cancer Grandmother (Maternal) Cancer Grandfather (Maternal) Heart disease Past Surgical History Surgical History H/O LEEP 2010 [place] teeth extracted 2002 Past Anesthesia History No Hx of Anesthesia Complications and No Family Hx of Anesthesia Complications History of PONV No Hx of PONV and No Hx of Motion Sickness Social History Smoking Status: Never smoker Hx Alcohol Use: No Hx Substance Use: No Physical Exam Vital Signs Last Vital Signs Temp 36.6 C 05/21/24 05:59 Pulse 84 05/21/24 09:26 Resp 18 05/21/24 05:59 BP 115/67 05/21/24 09:26 Testing Laboratory Results 05/21/24 07:58
[2024-05-21] MEDS: fentaNYL citrate PF 100 MCG/2 ML VIAL ONE (10:31)
[2024-05-21] MEDS: BUPIVACAINE 0.25% PF 30 ML VIAL ONE (10:31)
[2024-05-21] MEDS: LIDOCAINE 2%/EPINEPHRINE 1:200,000 20 ML PF ONE (10:43)
[2024-05-21] MEDS: fentANYL 2 MCG/ML BUPIVacaine 0.125%-NSS 100ML BAG ONE (10:43)
[2024-05-21] MEDS ORDERED: LIDOCAINE 2% MPF LOCAL 5 ML VIAL EPI PRN (10:45)
[2024-05-21] MEDS ORDERED: ONDANSETRON INJ 2 MG/ML 2 ML VIAL IV PRN (10:45)
[2024-05-21] MEDS ORDERED: fentANYL 2 MCG/ML BUPIVacaine 0.125%-NSS 100ML BAG EPI PRN (10:45)
[2024-05-21] MEDS ORDERED: NALBUPHINE HCL 5 MG in SYRINGE 0 ML IV PRN (10:45)
[2024-05-21] MEDS ORDERED: ROPIVACAINE 0.5% PF 5 MG/ML 20 ML VIAL EPI PRN (10:45)
[2024-05-21] MEDS ORDERED: ePHEDrine sulfate 50 MG/ML AMP IV PRN (10:45)
[2024-05-21] MEDS ORDERED: PROMETHAZINE HCL 6.25 MG in SODIUM CHLORIDE 0.9% 50 ML IV PRN (10:45)
[2024-05-21] MEDS ORDERED: SODIUM CHLORIDE 0.9% PF INJ 10 ML VIAL EPI PRN (10:45)
[2024-05-21] MEDS ORDERED: NALOXONE HCL 0.4 MG/1 ML VIAL/CARP IV PRN (10:45)
[2024-05-21] MEDS ORDERED: BUPIVACAINE 0.25% PF 30 ML VIAL EPI PRN (10:45)
[2024-05-21] MEDS ORDERED: NALOXONE HCL 1 MG in SODIUM CHLORIDE 0.9% 1,000 ML IV PRN (10:45)
[2024-05-21] MEDS ORDERED: diphenhydrAMINE 50 MG/ML VIAL IV PRN (10:45)
[2024-05-21] MEDS ORDERED: fentaNYL citrate PF 100 MCG/2 ML VIAL EPI PRN (10:45)
[2024-05-21] MEDS: ePHEDrine sulfate 50 MG/ML AMP ONE (10:50)
[2024-05-21] MEDS: SODIUM CHLORIDE 0.9% PF INJ 10 ML VIAL ONE (10:50)
[2024-05-21] MEDS: BUPIVACAINE 0.25% PF 30 ML VIAL EPI STA (11:03)
[2024-05-21] MEDS: SODIUM CHLORIDE 0.9% PF INJ 10 ML VIAL EPI STA (11:04)
[2024-05-21] MEDS: LIDOCAINE 2%/EPINEPHRINE 1:200,000 20 ML PF EPI STA (11:04)
[2024-05-21] MEDS: fentaNYL citrate PF 100 MCG/2 ML VIAL EPI STA (11:04)
[2024-05-21] MEDS: PENICILLIN GK 3 MU in DEXTROSE 5% 100 ML IV PRN (11:46)
[2024-05-21] MEDS: METHYLERGONOVINE MALEATE 0.2 MG/ML AMP IM ONE (14:40)
[2024-05-21] MEDS: OXYTOCIN 30 UNITS/NSS 30 UNITS/500 ML BAG IV PRN (14:40)
[2024-05-21] MEDS: miSOPROStoL 200 MCG TAB PR ONE (14:45)
[2024-05-21] MEDS ORDERED: HYDROCORTISONE ACETATE 25 MG SUPP PR PRN (15:07)
[2024-05-21] MEDS ORDERED: ACETAMINOPHEN W/CODEINE #3 1 TAB PO PRN (15:07)
[2024-05-21] MEDS ORDERED: bisacodyL 10 MG SUPP PR PRN (15:07)
[2024-05-21] MEDS ORDERED: DIPHTHER/TETAN/PERTUS Vaccine (Tdap, Adol/Adult) 0.5mL IM ONE (15:07)
[2024-05-21] MEDS ORDERED: oxyCODONE/ACETAMINOPHEN 5mg/325mg TAB PO PRN (15:07)
--- NOTE | 2024-05-21 15:15 | Delivery Summary ---
Vaginal Delivery Summary Date of Service May 21, 2024 Vaginal Delivery Summary Patient's been followed in the office for care and delivery. Blood type is O-. Vaginal beta strep screen positive. Was admitted in active labor about 4 to 5 cm dilated. She received 2 doses of penicillin. She received the initial 6 million dose and then a follow-up 4 million dose about an hour after she had her last dose of penicillin we examined her she was 9 to 10 cm. Membranes ruptured during exam. There was some thin meconium. She pushed out a live with about 5 pushes via direct occiput anterior position over an intact perineum. The perineum was allowed to stretch gradually. Head was delivered then suctioned through the mouth and the nose. Shoulders were delivered without difficulty. Cord was allowed to pulse for 1 full minute. Cord was clamped cut by the father. Cord blood was taken. With IV Pitocin running the placenta was removed intact. Inspection of the perineum revealed a first-degree laceration. This was repaired anatomically. The vaginal mucosa was approximated down to beyond the hymenal ring with a running Vicryl. A deep suture of Vicryl was used approximate the bulbocavernosus muscle. 2 individual sutures were used to approximate the perineal body. And then a running subcuticular suture of Vicryl was used to approximate the perineal skin edges. Vaginal examination revealed no hematoma formation there was some clotting removed from the vagina after the repair. I added IM Methergine and rectal Cytotec. This was done in order to contract the uterus. On rectal examination there were no stitches to the rectal mucosa. At the end of the delivery hemostasis was good. Quantitative blood loss was 597 mL.
--- NOTE | 2024-05-21 19:17 | Anesthesia Procedure Note ---
Date of Service May 21, 2024 Anesthesia Post Epidural Note Vital Signs Vital Signs: Temp Pulse Resp BP Pulse Ox O2 Del Method 37.2 C 88 16 100/65 98 Room Air 05/21/24 18:05 05/21/24 18:05 05/21/24 18:05 05/21/24 18:05 05/21/24 18:05 05/21/24 18:05 Pain Intensity Lower Abdomen: Pain Intensity: 1 Notes Mental Status: alert / awake / arousable and participated in evaluation Nausea / Vomiting: adequately controlled Pain: adequately controlled Airway Patency, RR, SpO2: stable & adequate BP & HR: stable & adequate Hydration State: stable & adequate Neuraxial Anesthesia: was administered and sensory block resolved Anesthetic Complications: no major complications apparent and Pt Satisfied with anesthetic care Epidural: Removed without complications and With tip intact
[2024-05-21] MEDS: BENZOCAINE 20% SPRY 85 APPLN/85 GM CAN EXT PRN (19:33)
[2024-05-21] MEDS: IBUPROFEN 600 MG TAB PO PRN (19:35)
[2024-05-21] MEDS: DOCUSATE SODIUM 100 MG CAP PO SCH (20:27)
[2024-05-22 06:30] LABS: Hematocrit (blood only) 33.3 % (37.0-47.0); Hemoglobin 11.4 g/dl (12.0-16.0); Mean Corpuscular Hemoglobin 31.6 pg (25.0-34.0); Mean Corpuscular Hgb Conc 34.2 g/dL (32.0-36.0); Mean Corpuscular Volume 92.2 fL (80.0-100.0); Mean Platelet Volume 10.6 fL (9.4-12.4); Platelet Count 203 K/uL (130-400); RDW Coefficient of Variation 14.4 % (11.5-14.5); Red Blood Count 3.61 M/uL (4.20-5.40); White Blood Count 19.49 K/ul (4.8-10.8)
[2024-05-22] MEDS ORDERED: LEVOTHYROXINE SODIUM 100 MCG TABLET PO SCH (07:31)
[2024-05-22] MEDS ORDERED: PRENATAL VITAMIN 1 TAB PO SCH (08:00)
--- NOTE | 2024-05-22 15:46 | Obstetrical Progress Note ---
Date of Service May 22, 2024 Assessment & Plan (1) Normal course: PPD#1 pt doing well No complaints d/c home with instructions Subjective Ambulation: ambulating normally Voiding: no voiding problems Passing Gas:: Yes Diet Tolerance:: regular diet Lochia:: Small Feeding Type:: breast feeding Review of Systems All systems reviewed & are unremarkable except as noted in HPI & below Physical Exam Constitutional WD/WN, vitals as above well developed and well nourished Eyes PERRL, conjunctivae normal, anicteric sclerae Neck trachea midline, no thyromegaly Respiratory normal respiratory effort, lungs clear to auscultation Auscultation: no crackles, no rales and no wheezes Cardiovascular RRR, no murmur, no edema Gastrointestinal (Abdomen) normal bowel sounds, soft, nontender, no hepatosplenomegaly Uterus is below umbilicus Musculoskeletal no cyanosis or clubbing, extremities motor strength 5/5 Skin no rashes, warm and dry Neurologic patellar DTR's 2+ bilat, sensation intact Psychiatric A+Ox3, euthymic affect Genitourinary normal external appearance Results & Data Vital Signs (Past 12 Hours) Vital Signs Temp Pulse Resp BP Pulse Ox O2 Del Method 05/22/24 07:40 36.7 C 76 18 108/70 100 Room Air 05/22/24 03:55 37.4 C 79 18 109/72 98 Room Air
[2024-05-22] MEDS ORDERED: bisacodyL 5 MG TABEC PO SCH (20:00)
== END 2024-05-22 16:29 | disposition home or self-care (01) | DRG 807 ==
LOC: OPB 05:41 → 4S1 05:45 → 4E2 18:10